=== PATIENT | male | born 1945 | race American Indian/Alaskan Native ===

== ENCOUNTER 2017-03-23 00:50 | Inpatient (IN) ==
[2017-03-23] MEDS ORDERED: Naloxone 0.4 MG/ML INJ IVP PRN (04:30)
--- NOTE | 2017-03-23 04:51 | Internal Med History&Physical ---
Date of Encounter: 03/23/17 Time of Encounter: 03:45 Assessment and Plan (1) CHF exacerbation Current visit: Yes Status: Acute No previous recent Echo available. Pt has increased SOB with leg swelling. Elevated BNP and CXR shows pulmonary congestion, consider CHF exacerbation. - Order Echo - Cont cardiac monitoring - Hold home med naproxen as seems it worsen pt's CHF symptoms - Strict I/O - Cardiac and fluid restriction diet - Lasix 40mg iv daily - in 2014, echo shows LVEF 60%, consider cardio consult if there is significant change in echo result. Qualifiers: Congestive heart failure type: unspecified Qualified Code(s): I50.9 - Heart failure, unspecified (2) COPD (chronic obstructive pulmonary disease) Current visit: Yes Status: Acute Stable, no wheezing, pt is not taking any inhaler/nebulizer at home. Qualifiers: COPD type: unspecified COPD Qualified Code(s): J44.9 - Chronic obstructive pulmonary disease, unspecified (3) Tobacco abuse Current visit: Yes Status: Acute Somking cessation education, nicotine patch. (4) AAA (abdominal aortic aneurysm) Current visit: Yes Status: Acute S/P surgery, cont outpatient follow up as scheduled. Qualifiers: Presence of rupture: without rupture Qualified Code(s): I71.4 - Abdominal aortic aneurysm, without rupture (5) PVD (peripheral vascular disease) Current visit: Yes Status: Acute S/P right leg stent (6) Low back pain Current visit: Yes Status: Chronic Cont home pain med for pain control Qualifiers: Chronicity: chronic Back pain laterality: bilateral Sciatica presence: with sciatica Sciatica laterality: bilateral sciatica Qualified Code(s): M54.42 - Lumbago with sciatica, left side; M54.41 - Lumbago with sciatica, right side; M54.41 - Lumbago with sciatica, right side; G89.29 - Other chronic pain; G89.29 - Other chronic pain (7) CAD (coronary artery disease) Current visit: Yes Status: Acute Pt has stent, cont Eliquis, BB, and statin. Pt has recent chest pain, probably benefit from stress test, can be done after CHF exacerbation has improved. Qualifiers: Coronary Disease-Associated Artery/Lesion type: [place] artery [place] vs. transplanted heart: [place] heart Associated angina: with unstable angina Qualified Code(s): I25.110 - Atherosclerotic heart disease of [place] coronary artery with unstable angina pectoris (8) Atrial fibrillation with RVR Current visit: No Status: Acute Now HR is well controlled after Cardizem drip. Drip stopped, cont home med metoprolol 75mg po tid for rate control. Cont Eliquis for AC. (9) Atypical chest pain Current visit: No Status: Acute Pt has intermittent chest pain. Hx of CAD. Need to r/o ACS. - Cont cardiac monitoring - Track 3 sets of troponin - Echo in AM. - Consider stress test after CHF exacerbation has improved. (10) DVT prophylaxis Current visit: Yes Status: Acute Pt is on Eliquis. Internal Medicine - H&P: HPI Chief complaint: SOB Admitted From: Home Plans for Post Hospital Care: Home History of present illness: Mr. Shay is a 71 year old male with Hx of A Fib on Eliquis, CAD s/p stent, PVD s/p stent, COPD, CHF, Tobacco abuse, Chronic low back pain, AAA s/p surgery , present to [facility] for SOB. Pt said he has increased SOB since he was started naproxen since 03/17/17. He cannot lay flat during night and has increased exertional SOB. He has increased leg swelling as well. In recent several days, he also has intermittent chest pain located on left side chest, sharp, around 8/ 10. Today his SOB is worse and he came to [place] ER. In ER, he was found A Fib RVR with HR 140-150 with SpO2 82-83% in RA. CXR shows pulmonary congestion. He was also found elevated BNP. He was placed on cardizem drip and given lasix iv. His symptoms has significantly improved. HR get down to 80s, SOB improved, and chest pain resolved. He was transferred to our hospital for further management. I have discussed CODE STATUS with pt. He clearly told me he doesn't want CPR or intubation even if necessary, he said "whatever way Lord takes me, just let me go". Past Med Surg Social Fam HX - Past Medical History Medical history: atrial fibrillation, COPD, coronary artery disease, hyperlipidemia, hypertension, myocardial infarction Psychiatric history: no psych history - Past Surgical History Surgical History: angioplasty/stent, orthopedic, other - Social History Smoking Status: Current every day smoker Packs per day: 0.5 Smokeless Tobacco Status: No Alcohol use: none Drug use: none - Family History Mother Hx Family Endocrine Disorder: Yes (Diabetes) Internal Medicine - H&P: Meds Cyclobenzaprine HCl 5 mg PO TID 11/18/14 [History] Hydrocodone/Acetaminophen [[place] 10-325 Tablet] 1 each PO Q4H PRN 11/18/14 [ History] Omeprazole [PriLOSEC] 20 mg PO BIDAC 11/18/14 [History] Simvastatin [Zocor] 80 mg PO HS 11/18/14 [History] Apixaban [Eliquis] 5 mg PO BID 03/22/17 [History] Metoprolol [Lopressor] 75 mg PO TID 03/22/17 [History] Naproxen [Naprosyn] 500 mg PO BID 03/22/17 [History] Multivit-Min/FA/Lycopen/Lutein [Centrum Silver Tablet] 1 each PO DAILY 03/23/17 [History] [place]-3 Fatty Acids [Fish Oil] 1,200 mg PO BID 03/23/17 [History] 3 Allergy/AdvReac Type Severity Reaction Status Date / Time No Known Allergies Allergy Unverified 12/24/14 11:34 All Systems PM: A 10-system review of systems was performed and is negative for pertinent findings except as documented above in the HPI. - Constitutional Vitals: Temp Pulse Resp BP Pulse Ox 97.4 F L 84 20 117/80 95 03/23/17 02:49 03/23/17 02:49 03/23/17 02:49 03/23/17 02:49 03/23/17 02:49 General appearance: Present: A&O X 3, no acute distress, answers questions appropriately - Head Head exam: Present: atraumatic, normocephalic - Eye Eye exam: Present: PERRL, conjuntiva pink, sclera anicteric Pupils: Present: PERRL - Neck Neck exam general surgery: Present: supple, trachea midline. Absent: lymphadenopathy - Respiratory Respiratory exam: Present: CTAB. Absent: accessory muscle use, rales, rhonchi, wheezes - Cardiovascular Cardiovascular exam: Present: RRR, +S1, +S2. Absent: diastolic murmur, gallop, rubs, systolic murmur - GI/Abdominal GI/Abdominal exam: Present: normal bowel sounds, soft, no peritoneal signs. Absent: distended, tenderness - Extremities Exam Extremities exam: Present: pedal edema (mild to moderated pedal edema b/l), warm , radial pulses palpable and symmetrical. Absent: calf tenderness, cyanotic - Neurological Exam Neurological exam: Present: CN II-XII intact, oriented X3, no focal deficits. Absent: pronater drift, facial droop, speech deficit - Skin Skin exam: Present: dry, intact Internal Med - H&P Results - EKG Data -: EKG Interpreted by Myself (Stephon Lugo RVNinfa)
[2017-03-23 05:30] LABS: Basophils % 0.3 %; Eosinophils % 0.2 %; Hematocrit 42.6 % (37.5-50.1); Hemoglobin 13.7 g/dL (12.9-16.9); Immature Granulocytes % 0.3 % (0-4); Lymphocytes # 1.7 K/mcL (0.6-4.6); Lymphocytes % 14.4 %; Mean Corpuscular HGB Conc 32.2 g/dL (31.6-35.5); Mean Corpuscular Hemoglobin 30.9 pg (28.0-33.3); Mean Corpuscular Volume 95.9 fL (83.0-100.0); Mean Platelet Volume 11.2 fL (9.4-12.4); Monocytes # 0.8 K/mcL (0.0-1.3); Monocytes % 6.5 %; Neutrophils # 9.2 K/mcL (1.6-8.9); Platelet Count 170 K/mcL (140-400); Red Blood Count 4.44 M/mcL (4.19-5.50); Red Cell Distribution Width 14.5 % (11.5-14.5); Segmented Neutrophils % 78.3 %
[2017-03-23 05:53] LABS: BUN/Creatinine Ratio 21 (6-26); Blood Urea Nitrogen 15 mg/dL (8-23); Calcium 9.2 mg/dL (8.6-10.3); Carbon Dioxide 30 mEq/L (23-29); Chloride 103 mEq/L (98-107); Glucose 125 mg/dL (70-105); Magnesium 1.8 mg/dL (1.6-2.6); Osmolality,Calculated 290 (280-300); Potassium 4.3 mEq/L (3.5-5.1); Sodium 139 mEq/L (136-145); eGFR For African Americans > 60 (> 60); eGFR For Non-African Americans > 60 (> 60)
[2017-03-23] MEDS: *HR* HYDROcodone/Acet 10/325 mg TABLET PO PRN ×2 (06:16→20:48)
[2017-03-23] MEDS: Furosemide 40 MG/4 ML VIAL IVP SCH (08:35)
[2017-03-23] MEDS: Apixaban 5 MG TABLET PO SCH ×2 (08:35→20:48)
[2017-03-23] MEDS: Nicotine 21 MG PATCH.TD24 TD SCH (08:36)
[2017-03-23] MEDS: Multivit/Ca/Min/Fe/FA 1 TAB TABLET PO SCH (08:36)
[2017-03-23] MEDS ORDERED: (Omega-3 Fatty Acids [Fish Oil] 1,200 MG) PO SCH (09:00)
--- NOTE | 2017-03-23 10:28 | Internal Med Progress Note ---
<Juan Luis Ferro - Last Filed: 03/23/17 16:26> Date of Encounter: 03/23/17 Time of Encounter: 10:27 - Assessment and plan (1) Atrial fibrillation with RVR Current Visit: Yes Status: Acute Assessment and plan: - Patient with a known history of atrial fibrillation presents with RVR - Heart rate has been running in 90s after stopping Cardizem drip overnight - Patient started on home beta kristine - Cardiology has been consulted for A. fib RVR with new onset heart failure, appreciate recommendations - Patient's is anticoagulated at home with Eliquis, will continue - Likely brought on by shortness of breath secondary to CHF exacerbation Plan - Continue home Eliquis and metoprolol 75 mg 3 times a day - We will treat CHF as below (2) CHF exacerbation Current Visit: Yes Status: Acute Assessment and plan: - Patient denies any previous history of congestive heart failure, [facility] - Echocardiogram performed assessment reveals an ejection fraction of 5055%, indeterminant diastolic dysfunction, no valvular dysfunction - Cardiology following, appreciate recommendations - BNP on admission of 717 - Chest x-ray on 03/22/17 showing mild pulmonary edema and small bilateral pleural effusions - Less likely etiology of COPD as patient is not complaining of cough, wheezing , respiratory panel negative for infection. Plan - He was started on Lasix 40 mg IV daily. We will continue as patient is clinically improved - Strict I's and O's - Pending cardiology recommendations Qualifiers: Congestive heart failure type: diastolic Qualified Code(s): I50.33 - Acute on chronic diastolic (congestive) heart failure (3) COPD (chronic obstructive pulmonary disease) Current Visit: Yes Status: Chronic Assessment and plan: - Patient states history of COPD - Not appear to be in exacerbation at this time - Continue supplemental oxygen as needed, no reported home O2 requirement - Albuterol when necessary shortness of breath Qualifiers: COPD type: unspecified COPD Qualified Code(s): J44.9 - Chronic obstructive pulmonary disease, unspecified (4) Tobacco abuse Current Visit: Yes Status: Acute Assessment and plan: - Patient admits to smoking one pack of cigarettes per day, for the past 50+ years - We did have a discussion today regarding smoking cessation - He states that he is aware of risks of continued use however he is not ready to quit at this time. (5) AAA (abdominal aortic aneurysm) Current Visit: Yes Status: Acute Assessment and plan: - Status post surgery, continue management as outpatient Qualifiers: Presence of rupture: without rupture Qualified Code(s): I71.4 - Abdominal aortic aneurysm, without rupture (6) Low back pain Current Visit: Yes Status: Chronic Assessment and plan: Chronic low back pain Continue home medications of Flexeril, [place] 10-325 Qualifiers: Chronicity: chronic Back pain laterality: bilateral Sciatica presence: with sciatica Sciatica laterality: bilateral sciatica Qualified Code(s): M54.42 - Lumbago with sciatica, left side; M54.41 - Lumbago with sciatica, right side; M54.41 - Lumbago with sciatica, right side; G89.29 - Other chronic pain; G89.29 - Other chronic pain (7) CAD (coronary artery disease) Current Visit: Yes Status: Acute Assessment and plan: - Complaining of chest pressure in emergency department, resolved - History of CAD with 3 stents in 2003 - Troponin negative 3 - EKG unchanged - Cardiology following, appreciate recommendations - Continue aspirin, beta kristine Qualifiers: Coronary Disease-Associated Artery/Lesion type: [place] artery [place] vs. transplanted heart: [place] heart Associated angina: without angina Qualified Code(s): I25.10 - Atherosclerotic heart disease of [place] coronary artery without angina pectoris (8) DVT prophylaxis Current Visit: Yes Status: Acute Assessment and plan: Patient is on Eliquis for known atrial fibrillation - Time Spent With Patient 25 - 35 minutes - Subjective Interval history: This note is not for billing purposes. Patient was seen and examined this morning bedside. He states that he presented to the emergency department due to complaints of shortness of breath as well as chest pressure. The pressure is intermittent and located substernally. He does have a past cardiac history of CAD status post 3 stents. His symptoms were nonexertional and have resolved. He reports no previous history of congestive heart failure. He did have a stress test approximately 1 year ago at the [facility] which he states was normal. Does admit to a chronic cough however no changes in sputum production or amount. Denies any symptoms of fevers, chills. - Constitutional Vitals: Temp Pulse Resp BP Pulse Ox 97.8 F 95 16 121/59 90 03/23/17 06:59 03/23/17 06:59 03/23/17 06:59 02/07/18 06:59 03/23/17 06:59 General appearance: Present: A&O X 3, no acute distress, answers questions appropriately Exam: Gen.: Vitals noted. No acute distress. AAOx3 HEENT: PERRL/EOMI, oropharynx clear, Normocephalic, atraumatic Cardiac: Irregular, mildly tachycardic, no murmur, +S1/S2 Pulmonary: CTA bilaterally, no wheezes, rales or rhonchi, equal chest expansion. Abdomen: soft, nontender, BS noted, no guarding MSK: ROM intact, no joint swelling noted Extremities: 2+ bilateral lower extremity edema, nontender calf, no cyanosis or clubbing Neuro: A&Ox3, moves all extremities, no focal deficits Psych: Appropriate mood and behavior Internal Medicine: Result - Labs CBC & Chem 7: 03/23/17 04:54 03/23/17 04:54 Labs: Short CBC 03/23/17 Range/Units 04:54 WBC 11.7 H (4.3-11.1) K/mcL Hgb 13.7 (12.9-16.9) g/dL Hct 42.6 (37.5-50.1) % Plt Count 170 (140-400) K/mcL Neutrophils # 9.2 H (1.6-8.9) K/mcL BMP 03/23/17 04:54 Sodium 139 Potassium 4.3 Chloride 103 Carbon Dioxide 30 H BUN 15 Creatinine 0.72 Glucose 125 H Calcium 9.2 Cardiac Enzymes 03/23/17 Range/Units 04:54 Troponin I < 0.03 (< 0.04) ng/mL Consult Discharge Plan - Plan [facility]errals: [facility] [Primary Care Provider[facility] - <Marcell Okeefe - Last Filed: 03/23/17 17:54> Date of Encounter: 03/23/17 - Assessment and plan (1) CHF exacerbation Current Visit: Yes Status: Acute Qualifiers: Congestive heart failure type: diastolic Qualified Code(s): I50.33 - Acute on chronic diastolic (congestive) heart failure (2) Atrial fibrillation Current Visit: Yes Status: Chronic Qualifiers: Atrial fibrillation type: chronic Qualified Code(s): I48.2 - Chronic atrial fibrillation (3) CAD (coronary artery disease) Current Visit: Yes Status: Acute Qualifiers: Coronary Disease-Associated Artery/Lesion type: [place] artery [place] vs. transplanted heart: [place] heart Associated angina: without angina Qualified Code(s): I25.10 - Atherosclerotic heart disease of [place] coronary artery without angina pectoris (4) PVD (peripheral vascular disease) Current Visit: Yes Status: Chronic (5) Tobacco abuse Current Visit: Yes Status: Acute - Constitutional Vitals: Temp Pulse Resp BP Pulse Ox 96.6 F L 92 16 118/82 97 03/23/17 15:27 03/23/17 15:27 03/23/17 15:27 03/23/17 15:27 03/23/17 15:27 Internal Medicine: Result - Labs CBC & Chem 7: 03/23/17 04:54 03/23/17 04:54 Labs: Short CBC 03/23/17 Range/Units 04:54 WBC 11.7 H (4.3-11.1) K/mcL Hgb 13.7 (12.9-16.9) g/dL Hct 42.6 (37.5-50.1) % Plt Count 170 (140-400) K/mcL Neutrophils # 9.2 H (1.6-8.9) K/mcL BMP 03/23/17 04:54 Sodium 139 Potassium 4.3 Chloride 103 Carbon Dioxide 30 H BUN 15 Creatinine 0.72 Glucose 125 H Calcium 9.2 Cardiac Enzymes 03/23/17 03/23/17 Range/Units 04:54 10:34 Troponin I < 0.03 < 0.03 (< 0.04) ng/mL - Impressions Impressions Echocardiogram 03/23/17 04:49 Impressions: LVEF 50-55%. Normal LV chamber size, wall thickness and function. Indeterminate diastolic function. Normal right ventricular structure and function. No evidence of pulmonary hypertension. No significant valvular dysfunction. Left Ventricular Wall Motion: Rest Echo Findings All wall segments showed normal motion. Findings: Study Quality * Technically adequate exam. ECG Findings * Atrial fibrillation. Left Ventricle * LVEF 50-55%. * Normal LV chamber size, wall thickness and function. * Indeterminate diastolic function. Right Ventricle * Normal right ventricular structure and function. Left Atrium * Severely dilated left atrium. Right Atrium * Mildly dilated right atrium. Interatrial Septum * Interatrial septum not well evaluated. Aortic Valve * Trileaflet aortic valve with normal function. * No aortic regurgitation. * No aortic stenosis. Mitral Valve * Normal mitral valve structure and function. * No mitral stenosis. * Trace mitral regurgitation. Tricuspid Valve * Normal tricuspid valve structure and function. * Trace tricuspid regurgitation. * No evidence of pulmonary hypertension. Pulmonic Valve * Pulmonic valve is not well visualized. * No pulmonic regurgitation. Aorta * Normally sized aortic root. Pericardium * The pericardium appears normal. IVC * Normal IVC dimensions and inspiratory collapse. Pulmonary Artery * Normal visualized portions of the main pulmonary artery. - Attending Attestation I examined this patient and my medical decision-making was reviewed with the Resident Physician on 03/23/17. I agree with the documented findings, disposition and treatment plan as described except to the extent set forth below. Mr Shay was admitted earlier today for acute diastolic heart failure and rapid a fib. Mr Shay is still having chest and nasal congestion. No fever. Coughing some. Exam Alert. Comfortable Heart tachy and irreg Rhonchi heard I/P 1. Acute diastolic CHF 2. A fib
--- NOTE | 2017-03-23 12:38 | Cardiology Consult Note ---
Date of Encounter: 03/23/17 Time of Encounter: 12:29 Assessment and Plan (1) CHF exacerbation Current Visit: Yes Status: Acute Acute diastolic CHF. Fluid overload on exam. TTE shows EF 50-55%. Indeterminate diastolic function. No significant valvular disease. CHF education reviewed. Low sodium diet and daily weights. Agree with IV lasix as you are doing. Qualifiers: Congestive heart failure type: diastolic Qualified Code(s): I50.33 - Acute on chronic diastolic (congestive) heart failure (2) Atrial fibrillation with RVR Current Visit: No Status: Acute Atrial fibrillation with RVR on presentation. Reports history of afib. Currently on eliquis for AC. Likely respiratory driven. Continue lopressor. HR currently 90's. If recurrent afib with RVR add cardizem. (3) CAD (coronary artery disease) Current Visit: Yes Status: Acute H/o previous PCI in 2003. Reports stress test one year ago at the [facility] that was normal. Continue asa, statin, and bb. Qualifiers: Coronary Disease-Associated Artery/Lesion type: [place] artery [place] vs. transplanted heart: [place] heart Associated angina: with unstable angina Qualified Code(s): I25.110 - Atherosclerotic heart disease of [place] coronary artery with unstable angina pectoris Discussion w patient/family: The assessment and plan as outlined above was discussed with the patient and/or family members who expressed understanding and agreement. All questions were answered. Thank you for involving us in the care of your patient. Please call with any questions. History of Present Illness Consult date: 03/23/17 Requesting physician: Juan Luis Ferro Consult reason: CHF Chief complaint: SOB for 3 days History of present illness: Mr. Shay is a 71 year old male with a past medical history of CAD s/p previous PCI in 2003, COPD, atrial fibrillation on eliquis, HTN, and tobacco use. [facility] presented to [facility] with increasing SOB and chills for 3 days. Cardiology consulted for CHF and atrial fibrillation with RVR. Cardiac work-up included troponin that was negative x3. EKG showed atrial fibrillation with RVR. TTE shows preserved EF. HR noted to be elevated in the 120's. He was initially on cardizem gtt that is now off. HR now 90-110. He denies chest pain. C/o occasional tingling in his left arm . Past Med Surg Social Fam HX - Past Medical History Attestation: Yes The following information was validated with the patient. Medical history: atrial fibrillation, COPD, coronary artery disease, hyperlipidemia, hypertension, myocardial infarction Psychiatric history: no psych history - Past Surgical History Surgical History: angioplasty/stent, orthopedic, other - Social History Smoking Status: Current every day smoker Packs per day: 0.5 Smokeless Tobacco Status: No Alcohol use: none Drug use: none - Family History Mother Hx Family Endocrine Disorder: Yes (Diabetes) Medications and Allergies Cyclobenzaprine HCl 5 mg PO TID 11/18/14 [History] Hydrocodone/Acetaminophen [[place] 10-325 Tablet] 1 each PO Q4H PRN 11/18/14 [ History] Omeprazole [PriLOSEC] 20 mg PO BIDAC 11/18/14 [History] Simvastatin [Zocor] 80 mg PO HS 11/18/14 [History] Apixaban [Eliquis] 5 mg PO BID 03/22/17 [History] Metoprolol [Lopressor] 75 mg PO TID 03/22/17 [History] Naproxen [Naprosyn] 500 mg PO BID 03/22/17 [History] Multivit-Min/FA/Lycopen/Lutein [[place] Silver Tablet] 1 each PO DAILY 03/23/17 [History] [place]-3 Fatty Acids [Fish Oil] 1,200 mg PO BID 03/23/17 [History] 3 Allergy/AdvReac Type Severity Reaction Status Date / Time No Known Allergies Allergy Unverified 12/24/14 11:34 All Systems Review: A 10-system review of systems was performed and is negative for pertinent findings except as documented above in the HPI. Physical Examination Vital Signs, Last 4 Hours Temp Pulse Resp BP Pulse Ox 03/23/17 11:49 98 F 90 16 115/61 91 General: Conversant, No Apparent Distress HEENT: Atraumatic, Normocephaly, Mucus Membranes Moist Neck: No JVD, Normal carotid pulses Cardiac: Reg Rate and Rhythm, Normal S1 and S2, No Murmur Lungs: Other (Rales BLL posteriorly. ) Neuro: Alert and responsive, No focal deficits noted Abdomen: Soft, Non-Tender Skin: No rashes noted on visualized skin Musculoskeletal: No Chest Wall Tenderness Extremities: No Clubbing, No Cyanosis, Normal Pulses, Other (2+ BLE edema up to knees. ) Results 03/23/17 04:54 03/23/17 04:54 Lab Results 03/23/17 03/23/17 03/23/17 04:54 04:54 04:54 WBC 11.7 H Hgb 13.7 Hct 42.6 Plt Count 170 Sodium 139 Potassium 4.3 Chloride 103 Carbon Dioxide 30 H BUN 15 Creatinine 0.72 Glucose 125 H Calcium 9.2 Magnesium 1.8 Troponin I < 0.03 03/23/17 10:34 WBC Hgb Hct Plt Count Sodium Potassium Chloride Carbon Dioxide BUN Creatinine Glucose Calcium Magnesium Troponin I < 0.03 - Imaging and Cardiology Echo: report reviewed Consult Discharge Plan - Plan [facility]errals: [facility] [Primary Care Provider] -
[2017-03-23] MEDS: Aspirin Enteric Coated 81 MG Tablet PO SCH (15:13)
[2017-03-23 16:26] LABS: Adenovirus Not Detected (Not Detect); Bordetella Pertussis Not Detected (Not Detect); Chlamydophila pneumoniae Not Detected (Not Detect); Coronavirus 229E Not Detected (Not Detect); Coronavirus HKU1 Not Detected (Not Detect); Coronavirus NL63 Not Detected (Not Detect); Coronavirus OC43 Not Detected (Not Detect); Human Metapneumovirus Not Detected (Not Detect); Human Rhinovirus/Enterovirus Not Detected (Not Detect); Influenza A Subtype 2009 H1 Not Detected (Not Detect); Influenza A Untypeable Not Detected (Not Detect); Influenza B Not Detected (Not Detect); Mycoplasma pneumoniae Not Detected (Not Detect); Parainfluenza Virus 1 Not Detected (Not Detect); Parainfluenza Virus 2 Not Detected (Not Detect); Parainfluenza Virus 3 Not Detected (Not Detect); Parainfluenza Virus 4 Not Detected (Not Detect); Respiratory Syncytial Virus Not Detected (Not Detect)
[2017-03-24] MEDS: *HR* HYDROcodone/Acet 10/325 mg TABLET PO PRN ×4 (05:47→13:06)
[2017-03-24 06:30] LABS: Hematocrit 43.6 % (37.5-50.1); Hemoglobin 14.3 g/dL (12.9-16.9); Mean Corpuscular HGB Conc 32.8 g/dL (31.6-35.5); Mean Corpuscular Hemoglobin 31.4 pg (28.0-33.3); Mean Corpuscular Volume 95.6 fL (83.0-100.0); Mean Platelet Volume 10.7 fL (9.4-12.4); Platelet Count 174 K/mcL (140-400); Red Blood Count 4.56 M/mcL (4.19-5.50); Red Cell Distribution Width 14.3 % (11.5-14.5)
[2017-03-24 07:07] LABS: BUN/Creatinine Ratio 19 (6-26); Blood Urea Nitrogen 16 mg/dL (8-23); Calcium 9.5 mg/dL (8.6-10.3); Carbon Dioxide 30 mEq/L (23-29); Chloride 104 mEq/L (98-107); Glucose 111 mg/dL (70-105); Osmolality,Calculated 290 (280-300); Potassium 4.2 mEq/L (3.5-5.1); Sodium 139 mEq/L (136-145); eGFR For African Americans > 60 (> 60); eGFR For Non-African Americans > 60 (> 60)
[2017-03-24] MEDS: Multivit/Ca/Min/Fe/FA 1 TAB TABLET PO SCH (09:30)
[2017-03-24] MEDS: Aspirin Enteric Coated 81 MG Tablet PO SCH (09:30)
[2017-03-24] MEDS: Apixaban 5 MG TABLET PO SCH (09:30)
[2017-03-24] MEDS: Furosemide 40 MG/4 ML VIAL IVP SCH (09:32)
--- NOTE | 2017-03-24 09:34 | Discharge Summary ---
<RoxanneJuan Luis carver - Last Filed: 03/24/17 14:00> Date of Encounter: 03/24/17 Time of Encounter: 09:31 - Discharge Diagnosis (1) Atrial fibrillation with RVR Priority: Primary Status: Acute (2) CHF exacerbation Priority: Secondary Status: Acute Qualifiers: Congestive heart failure type: diastolic Qualified Code(s): I50.33 - Acute on chronic diastolic (congestive) heart failure (3) COPD (chronic obstructive pulmonary disease) Priority: Secondary Status: Chronic Qualifiers: COPD type: unspecified COPD Qualified Code(s): J44.9 - Chronic obstructive pulmonary disease, unspecified (4) Tobacco abuse Priority: Secondary Status: Acute (5) AAA (abdominal aortic aneurysm) Priority: Secondary Status: Acute Qualifiers: Presence of rupture: without rupture Qualified Code(s): I71.4 - Abdominal aortic aneurysm, without rupture (6) Low back pain Priority: Secondary Status: Chronic Qualifiers: Chronicity: chronic Back pain laterality: bilateral Sciatica presence: with sciatica Sciatica laterality: bilateral sciatica Qualified Code(s): M54.42 - Lumbago with sciatica, left side; M54.41 - Lumbago with sciatica, right side; M54.41 - Lumbago with sciatica, right side; G89.29 - Other chronic pain; G89.29 - Other chronic pain (7) CAD (coronary artery disease) Priority: Secondary Status: Acute Qualifiers: Coronary Disease-Associated Artery/Lesion type: three affiliated artery [place] vs. transplanted heart: three affiliated heart Associated angina: without angina Qualified Code(s): I25.10 - Atherosclerotic heart disease of three affiliated coronary artery without angina pectoris (8) DVT prophylaxis Priority: Secondary Status: Acute - Discharge Medications Prescriptions: Aspirin Enteric Coated [Aspirin EC] 81 mg PO DAILY #30 tab Home Medications: Cyclobenzaprine HCl 5 mg PO TID 11/18/14 [History] Hydrocodone/Acetaminophen [[place] 10-325 Tablet] 1 each PO Q4H PRN 11/18/14 [ History] Omeprazole [PriLOSEC] 20 mg PO BIDAC 11/18/14 [History] Simvastatin [Zocor] 80 mg PO HS 11/18/14 [History] Apixaban [Eliquis] 5 mg PO BID 03/22/17 [History] Metoprolol [Lopressor] 75 mg PO TID 03/22/17 [History] Naproxen [Naprosyn] 500 mg PO BID 03/22/17 [History] Multivit-Min/FA/Lycopen/Lutein [Centrum Silver Tablet] 1 each PO DAILY 03/23/17 [History] [place]-3 Fatty Acids [Fish Oil] 1,200 mg PO BID 03/23/17 [History] Aspirin Enteric Coated [Aspirin EC] 81 mg PO DAILY #30 tab 03/24/17 [Rx] Allergies/Adverse Reactions: 3 Allergy/AdvReac Type Severity Reaction Status Date / Time No Known Allergies Allergy Unverified 12/24/14 11:34 Procedures/tests Complete & Pending: Procedures Performed prior 72 hours Category Date Time Status EV echocardiogram Routine Y 03/23/17 04:49 Completed Date of admission: 03/23/17 04:30 Primary care physician: PCP [place] Consults: 03/23/17 04:40 Consult to Field Project Manager [CONS] Routine Reason for SW Consult: Pt is admitted but has one appointment for his disability evaluation this PM, please see him and see if we can help or not. 03/23/17 11:19 Consult to Cardiology [CONS] Routine Comment: Consulting Provider: Cardiology Chasity Reason for Consult: new onset HFrEF, Afib RVR Call Completed: Yes Discharging clinician: Juan Luis Ferro Anticipated date of discharge: 03/24/17 - Patient Status Disposition: Home, Self-Care Condition: Good Functional capacity at discharge: independent ambulation Overall status at discharge: patient is back to baseline - Discharge Instructions Instructions: Aspirin (By mouth), Heart Failure (DC), Atrial Fibrillation (DC) , Peripheral Vascular Disorders (DC), Chronic Obstructive Pulmonary Disease (DC) , Cigarette Smoking and Your Health, Team Lead (GEN) Follow Up With: OR,PCP [Primary Care Provider] - 03/28/17 2:45 pm (follow up with primary care at OR) Additional Instructions: Please follow up with her primary care physician within one week of discharge. Cardiology is artifact scheduled a follow-up appointment. Please take all medications as prescribed - Diet and Activity Activity: increase activity as tolerated, resume usual activities as tolerated Diet: advance to your usual diet Hospital course: Mr. Shay is a 71 year old male with past medical history of atrial fibrillation on anticoagulation, CAD status post stenting in 2003, PVD status post stent, COPD, CHF, tobacco abuse, AAA status post surgery presented to [facility] emergency room with a chief complaint of shortness of breath. He did admit to associated symptoms of orthopnea and intermittent chest pressure located on the left with radiation to his arm. In the emergency room he was found to have atrophic lung with RVR with a heart rate 140-150 with oxygen saturation of 80-83 % on room air. CXR showed pulmonary congestion and a elevated BNP of 717. He was started on a Cardizem drip and given IV Lasix. He is admitted to hospital for further evaluation and management of suspected CHF exacerbation and A. fib RVR. During course of stay, patient gradually improved. He was diuresed and he was transitioned back to his home rate control medications. Troponin was trended and negative 3. Cardiology was consulted and they elected to medically manage his A. fib RVR and did not feel that he was appropriate for further testing of chest pain or CHF. A cardiogram performed which revealed an ejection fraction of 50-55% and intermediate diastolic dysfunction. On day of discharge, patient is medically stable with 0 complaints. He is tolerating room air and heart rate has been stable in 70s to 80s. He was instructed to follow up with his primary care physician and continue his anticoagulation as well as all of his other home medications. He will be discharged home in stable medical condition. - Time Spent with Patient Total time spent providing and/or coordinating discharge services: - Constitutional Vitals: Temp Pulse Resp BP Pulse Ox 98.0 F 86 14 107/69 97 03/24/17 06:56 03/24/17 06:56 03/24/17 06:56 03/24/17 06:56 03/24/17 06:56 General appearance: Present: A&O X 3, no acute distress, answers questions appropriately Exam: Gen.: Vitals noted. No acute distress. AAOx3 HEENT: PERRL/EOMI, oropharynx clear, Normocephalic, atraumatic Cardiac: RRR, no murmur, +S1/S2 Pulmonary: Mild expiratory wheezing, equal chest expansion Abdomen: soft, nontender, BS noted, no guarding MSK: ROM intact, no joint swelling noted Extremities: no BLE edema, nontender calf, no cyanosis or clubbing Neuro: A&Ox3, moves all extremities, no focal deficits Psych: Appropriate mood and behavior <Marcell Okeefe Stephon - Last Filed: 03/24/17 18:32> Date of Encounter: 03/24/17 - Discharge Diagnosis (1) CHF exacerbation Priority: Primary Status: Acute Qualifiers: Congestive heart failure type: diastolic Qualified Code(s): I50.33 - Acute on chronic diastolic (congestive) heart failure (2) Atrial fibrillation Priority: Secondary Status: Chronic Qualifiers: Atrial fibrillation type: chronic Qualified Code(s): I48.2 - Chronic atrial fibrillation (3) CAD (coronary artery disease) Status: Acute Qualifiers: Coronary Disease-Associated Artery/Lesion type: three affiliated artery [place] vs. transplanted heart: three affiliated heart Associated angina: without angina Qualified Code(s): I25.10 - Atherosclerotic heart disease of three affiliated coronary artery without angina pectoris (4) PVD (peripheral vascular disease) Priority: Secondary Status: Chronic (5) Tobacco abuse Status: Acute Procedures/tests Complete & Pending: Procedures Performed prior 72 hours Category Date Time Status EV echocardiogram Routine Y 03/23/17 04:49 Completed Date of admission: 03/23/17 04:30 [facility] care physician: [facility] Consults: 03/23/17 04:40 Consult to Field Project Manager [CONS] Routine Reason for SW Consult: Pt is admitted but has one appointment for his disability evaluation this PM, please see him and see if we can help or not. 03/23/17 11:19 Consult to Cardiology [CONS] Routine Comment: Consulting Provider: Cardiology Chasity Reason for Consult: new onset HFrEF, Afib RVR Call Completed: Yes Hospital course: Mr. Shay is a 71 year old male - Time Spent with Patient Total time spent providing and/or coordinating discharge services: 39min - Constitutional Vitals: Temp Pulse Resp BP Pulse Ox 97.7 F 96 14 113/77 92 03/24/17 11:07 03/24/17 11:07 03/24/17 11:07 03/24/17 11:07 03/24/17 11:07 - Attending Attestation I examined this patient and my medical decision-making was reviewed with the Resident Physician on 03/24/17. I agree with the documented findings, disposition and treatment plan as described except to the extent set forth below. Mr Shay has been admitted for CHF and hypoxia. He is breathing better and is afebrile. He is ready for discharge home and outpatient follow up. Exam alert Comfortable Mucus membranes dry Heart reg No wheeze abd soft Plan D/C home today
[2017-03-24] MEDS: Nicotine 21 MG PATCH.TD24 TD SCH (09:36)
--- NOTE | 2017-03-24 09:50 | Cardiology Progress Note ---
Date of Encounter: 03/24/17 Time of Encounter: 09:47 Assessment and Plan (1) CHF exacerbation Current Visit: Yes Status: Acute Acute diastolic CHF. Fluid overload on exam. TTE shows EF 50-55%. Indeterminate diastolic function. No significant valvular disease. CHF education reviewed. Low sodium diet and daily weights. Symptoms improved. Recommend oral lasix at discharge. Cardiology will sign off. Out-pt f/u will be coordinated by [facility]. Call with questions. Qualifiers: Congestive heart failure type: diastolic Qualified Code(s): I50.33 - Acute on chronic diastolic (congestive) heart failure (2) Atrial fibrillation with RVR Current Visit: Yes Status: Acute Atrial fibrillation with RVR on presentation. Reports history of chronic afib s/ p unsuccesful ablation in the past. Currently on eliquis for AC. Likely respiratory driven. Continue lopressor. HR currently 90's. Avg 100 bpm over last 24 hours. (3) CAD (coronary artery disease) Current Visit: Yes Status: Acute H/o previous PCI to RCA x 3 stents in 2003. Reports stress test one year ago at the [place] that was normal. Continue asa, statin, and bb. Qualifiers: Coronary Disease-Associated Artery/Lesion type: redding artery [place] vs. transplanted heart: redding heart Associated angina: without angina Qualified Code(s): I25.10 - Atherosclerotic heart disease of redding coronary artery without angina pectoris Discussion w patient/family: The assessment and plan as outlined above was discussed with the patient and/or family members who expressed understanding and agreement. All questions were answered. Thank you for involving us in the care of your patient. Please call with any questions. Subjective Principal diagnosis: DCHF, chronic afib Interval history: Mr. Bateman reports he is feeling better. Dyspnea and BLE edema has improved. Objective Vital Signs, Last 4 Hours Temp Pulse Resp BP Pulse Ox 03/24/17 06:56 98.0 F 86 14 107/69 97 General: Conversant, No Apparent Distress HEENT: Atraumatic, Normocephaly, Mucus Membranes Moist Neck: No JVD, Normal carotid pulses Cardiac: Reg Rate and Rhythm, Normal S1 and S2, No Murmur Lungs: Normal Breath Sounds, No Wheeze, Rales, Rhonchi Neuro: Alert and responsive, No focal deficits noted Abdomen: Soft, Non-Tender Skin: No rashes noted on visualized skin Musculoskeletal: No Chest Wall Tenderness Extremities: No Clubbing, No Cyanosis, Normal Pulses, Other (trace BLE edema) Results 03/24/17 06:03 03/24/17 06:03 Lab Results 03/23/17 03/24/17 03/24/17 10:34 06:03 06:03 WBC 11.6 H Hgb 14.3 Hct 43.6 Plt Count 174 Sodium 139 Potassium 4.2 Chloride 104 Carbon Dioxide 30 H BUN 16 Creatinine 0.85 Glucose 111 H Calcium 9.5 Troponin I < 0.03 - Imaging and Cardiology Echo: report reviewed - EKG Interpretation EKG results cardiology: personally reviewed Consult Discharge Plan - Plan Additional Instructions: Please follow up with her primary care physician within one week of discharge. Cardiology is artifact scheduled a follow-up appointment. Please take all medications as prescribed [facility]errals: [facility]Primary Care Provider[facility] - Prescriptions: Aspirin Enteric Coated [Aspirin EC] 81 mg PO DAILY #30 tab
[2017-03-24 11:10] VITALS: BP 113/77
== END 2017-03-24 15:16 | disposition home or self-care (01) | DRG 293 ==
LOC: 2NENU
PROVIDERS: ADMIT Internal Medicine; ATTEND Internal Medicine

== ENCOUNTER 2017-11-27 | Inpatient (IN) ==
[2017-11-27] MEDS ORDERED: *HR* Morphine 2 MG/ML SYRINGE IVP ONE (01:52)
[2017-11-27] MEDS ORDERED: Nitroglycerin 0.4 MG TAB.SUBL SL PRN (01:56)
[2017-11-27] MEDS ORDERED: Isovue-370 500 ML INFUS..BTL IV ONE (02:00)
--- NOTE | 2017-11-27 02:17 | Internal Med History&Physical ---
Addendum entered and electronically signed by Edd Yang DO 11/27/17 03: 17: Patient has Evidence of acute pancreatitis on CT abdomen. This is consistent with his symptoms of nausea, epigastric/right upper quadrant pain. I will add a Lipase, amylase and Lactic acid to labs. We will bolus 500mL LR now, and start 125mL/hr LR. Conservative fluid rate must be maintained due to history of CHF with fluid overload in the past. Diagnosis and plan are explained to patient who agrees. Original Note: <Edd Yang - Last Filed: 11/27/17 03:11> Date of Encounter: 11/27/17 Time of Encounter: 01:45 Internal Medicine - H&P: HPI Chief complaint: Chest pain Admitted From: Hospital to Hospital Transfer Plans for Post Hospital Care: Home History of present illness: Mr. Shay is a 72 year old male with history of atrial fibrillation, COPD, CAD status post 3 stents in 2003, hyperlipidemia, hypertension and AAA repair in 2007 who presented to [place] ED with complaint of insidious onset chest pain. The patient states that he was outside raking leaves and started to develop chest pain earlier this evening at approximately 5 PM. The pain started in the epigastric region and has radiation both to his abdomen and into his chest. The pain started mild, however has progressed to 7/10 as the night has gone on. The patient does endorse that the pain is exacerbated by movement and exertion , however nothing apart from rest seems to really alleviate the pain. The patient was given nitroglycerin in the ED however he states that this was not helpful to the pain. He states that there is some shortness of breath associated with this, however he does have baseline shortness of breath and says that it does not significantly worsen this. He also has some nausea but associated with this however has had no vomiting. He otherwise reports no acute symptoms. The patient denies any orthopnea or PND recently. He also denies any racing heartbeat, diaphoresis or palpitations. Significantly, the patient does admit to recent history of Lyme disease for which he is currently being treated with doxycycline. The patient was initially seen at [facility] where he was being worked up for Chest pain. He received an EKG which demonstrated atrial fibrillation with RVR, without evidence of ischemic changes. Initial troponin was negative. He did have a CXR which shows evidence of possible interstitial lung disease which appears to be chronic, however does not appear suspicious for consolidation. Past Med Surg Social Fam HX - Past Medical History Medical history: atrial fibrillation, COPD, coronary artery disease, hyperlipidemia, hypertension, myocardial infarction Additional medical history: 3 cardiac stents Psychiatric history: no psych history - Past Surgical History Surgical History: angioplasty/stent, orthopedic, other Additional surgical history: bilateral shoulder sx. carpel tunnel sx. right wrist sx. back sx - Social History Smoking Status: Current every day smoker Smokeless Tobacco Status: No Alcohol use: none Drug use: none - Family History Mother Hx Family Endocrine Disorder: Yes (Diabetes) Internal Medicine - H&P: Meds Cyclobenzaprine HCl 5 mg PO TID 11/18/14 [History] Hydrocodone/Acetaminophen [[place] 10-325 Tablet] 1 each PO Q4H PRN 11/18/14 [ History] Omeprazole [PriLOSEC] 20 mg PO BIDAC 11/18/14 [History] Simvastatin [Zocor] 80 mg PO HS 11/18/14 [History] Apixaban [Eliquis] 5 mg PO BID 03/22/17 [History] Metoprolol [Lopressor] 75 mg PO TID 03/22/17 [History] Multivit-Min/FA/Lycopen/Lutein [Centrum Silver Tablet] 1 each PO DAILY 03/23/17 [History] Ilfeld-3 Fatty Acids [Fish Oil] 1,200 mg PO BID 03/23/17 [History] Aspirin Enteric Coated [Aspirin EC] 81 mg PO DAILY #30 tab 03/24/17 [Rx] Furosemide [Lasix] 40 mg PO DAILY 11/27/17 [History] 3 Allergy/AdvReac Type Severity Reaction Status Date / Time gabapentin Allergy See Verified 11/27/17 00:26 Comments Oxycodone Allergy See Verified 11/27/17 00:26 Comments All Systems PM: A 10-system review of systems was performed and is negative for pertinent findings except as documented above in the HPI. Review of systems: Constitutional: Denies fevers, chills, weight loss, generalized fatigue Head/Neck: Denies JAMESON, neck stiffness EENT: Denies vision changes/blurriness, rhinorrhea, congestion, sore throat CVS: Admits to epigastric pain with radiation to chest and lower abdomen, shortness of breath and dyspnea on exertion. Denies orthopnea, PND, diaphoresis Pulm: Denies cough, sputum, hemoptysis, wheezing GI: Admits to abdominal pain with radiation to chest and lower abdomen, nausea. Denies vomiting, diarrhea, constipation, melena, hematemasis : Denies dysuria, increased frequency, urgency, hematuria Heme: Denies ease of bleeding or bruising MSK: Denies joint pain, limited ROM Skin: Denies rashes, ulcers, color changes Neuro: Denies JAMESON, paresthesias, focal deficits, ataxia - Constitutional Vitals: Temp Pulse Resp BP Pulse Ox 97.7 F 87 14 106/68 98 11/27/17 01:58 11/27/17 01:58 11/27/17 01:58 11/27/17 01:58 11/27/17 01:58 Exam: Gen: Vitals noted. Moderately distressed HEENT: Normocephalic, atraumatic Neck: Supple. No adenopathy. Cardiac: Rapid HR which is irregular, estimated to be 140-150, no murmur, +S1/S2 Pulmonary: CTA bilaterally, no wheezes, rales or rhonchi, equal chest expansion Abdomen: soft, Markedly tender to palpation particularly in the epigastric area and right upper quadrant. No masses or pulsation is noted Back: Nontender throughout. MSK: ROM intact, no joint swelling noted Extremities: no BLE edema, nontender calf, no cyanosis or clubbing Neuro: moves all extremities, no focal deficits. A&Ox3 Psych: Appropriate mood and behavior - Assessment and plan (1) Atrial fibrillation with RVR Current Visit: Yes Status: Acute Assessment and plan: Atrial fibrillation with rapid ventricular response HR appeared to be >130 on physical exam, likely secondary to pain Patient has been controlled on Lopressor 75mg TID in the past No indication that the patient is having decompensation of CHF/Respiratory status We will treat pain and give the patient 5mg IVP Lopressor to slow heart rate Continue 75mg PO Lopressor TID [employer] Continue Eliquis (2) AAA (abdominal aortic aneurysm) Current Visit: No Status: Chronic Assessment and plan: History of AAA repair in 2007 without rupture Given patients symptoms of upper abdominal pain with radiation to chest, abdomen and back, concern for vascular origin We will get CTA of Chest, abdomen and pelvis Close monitoring Qualifiers: Presence of rupture: without rupture Qualified Code(s): I71.4 - Abdominal aortic aneurysm, without rupture (3) CAD (coronary artery disease) Current Visit: No Status: Chronic Assessment and plan: CAD, Chronic Continue home meds Qualifiers: Coronary Disease-Associated Artery/Lesion type: [place] artery [place] vs. transplanted heart: [place] heart Associated angina: without angina Qualified Code(s): I25.10 - Atherosclerotic heart disease of [place] coronary artery without angina pectoris (4) Tobacco abuse Current Visit: No Status: Acute Assessment and plan: Chronic tobacco abuse Hold nicotine patches in acute chest pain (5) DVT prophylaxis Current Visit: No Status: Acute Assessment and plan: Patient is on Eliquis (6) Chest pain Current Visit: Yes Status: Acute Assessment and plan: Atypical chest pain, HEART Score 6 Patient does have significant risk factors for CAD, and has prior Stents in 2003 The patient did experience this chest pain while exerting himself, it was not improved with nitroglycerin and does not present as typical angina EKG was negative for ischemic changes, initial troponin is negative. Patient does have atrial fibrillation with RVR The location of the pain is primarily in his abdomen with radiation above and below Given his history of AAA with repair, there is some concern that this may have some vascular component CTA of the patient's chest, abdomen, pelvis for vascular compromise Treat the patients pain Qualifiers: Chest pain type: other chest pain Qualified Code(s): R07.89 - Other chest pain; R07.8 - Other chest pain - Time Spent With Patient Total time spent is greater than 50% in coordination of care (as documented) at patient's floor/unit and/or counseling patient: <Kyara Davis - Last Filed: 11/27/17 03:26> Date of Encounter: 11/27/17 Internal Medicine - H&P: HPI History of present illness: Mr. Shay is a 72 year old male All Systems PM: A 10-system review of systems was performed and is negative for pertinent findings except as documented above in the HPI. - Constitutional Vitals: Temp Pulse Resp BP Pulse Ox 97.7 F 116 14 122/77 98 11/27/17 01:58 11/27/17 03:07 11/27/17 01:58 11/27/17 03:07 11/27/17 01:58 Internal Med - H&P Results - Impressions ITS Impressions Abdomen/Pelvis CTA 11/27/17 02:00 IMPRESSION: Acute pancreatitis. Multiple gallstones. No acute findings in the chest. Patent aortic graft. No evidence of leak. D/ / Edd Johnston MD / Edd Johnston MD Interpreting Provider: Edd Johnston MD Chest CTA 11/27/17 02:00 IMPRESSION: Acute pancreatitis. Multiple gallstones. No acute findings in the chest. Patent aortic graft. No evidence of leak. D/ / Edd Johnston MD / Edd Johnston MD Interpreting Provider: Edd Johnston MD - Assessment and plan (1) Atrial fibrillation with RVR Current Visit: Yes Status: Acute (2) Tobacco abuse Current Visit: No Status: Acute (3) AAA (abdominal aortic aneurysm) Current Visit: No Status: Chronic Qualifiers: Presence of rupture: without rupture Qualified Code(s): I71.4 - Abdominal aortic aneurysm, without rupture (4) CAD (coronary artery disease) Current Visit: No Status: Chronic Qualifiers: Coronary Disease-Associated Artery/Lesion type: [place] artery [place] vs. transplanted heart: [place] heart Associated angina: without angina Qualified Code(s): I25.10 - Atherosclerotic heart disease of [place] coronary artery without angina pectoris (5) DVT prophylaxis Current Visit: No Status: Acute (6) Chest pain Current Visit: Yes Status: Acute Qualifiers: Chest pain type: other chest pain Qualified Code(s): R07.89 - Other chest pain; R07.8 - Other chest pain - Time Spent With Patient Total time spent is greater than 50% in coordination of care (as documented) at patient's floor/unit and/or counseling patient: - Attending Attestation Kenyon Shay is a 72 year old man with a history of atrial fibrillation on apixaban, coronary heart disease s/p PCI in 2004, diastolic heart failure and AAA repair in 2007. He is transferred here from [place] with the chief complaint of chest pain that reportedly subsided and the intent to rule out ACS. He presents here in a state of agony, writhing in severe pain and notably uncomfortable. He states that he started having pain earlier in the evening that goes up from his mid-abdomen into his mid-chest and radiates to his back. He says the pain started after working outside for most of the day and that he sought medical attention due to its persistence and increasing severity. He says that it feels different than when he had a heart attack at which time it was a crushing pain in his chest. He does admit to having been given nitroglycerin at [place] but that it never completely resolved and currently rates his pain at 7/10. He reports accompanying nausea as well but has not vomited. He continues to smoke. FHx remarkable for heart disease in father. Surgical hx as indicated above. All systems reviewed and negative except as listed above in the HPI. Physical exam remarkable for a thin man lying supine decubitus, in notable discomfort, pale dull skin, dry mucous membranes but no conjunctivae pallor, PERRLA, no JVD or LAD, diminished breath sounds in both lung yuan, no wheezing , rales or rhonchi, tachycardic and irregularly irregular, epigastrium significantly tender to palpation, no peripheral edema, AAOx3, no focal deficits , affect appropriate. EKG reviewed by me shows a.fib at a rate of 95 with low voltage. Will admit for chest pain; need to rule out aortic dissection emergently. STAT CTA chest/abdomen/pelvis ordered. Rule out perforated viscus and pancreatitis as well. Repeat labs, get troponin, lipase, lactate, order echo in the morning. Likely unable to tolerate stress test given his pain. Will monitor on telemetry. Repeat EKG. Rate control maneuvers. Continue anticoagulation. CLAY POE.
[2017-11-27] MEDS ORDERED: *HR* Metoprolol 5 MG/5 ML VIAL IVP ONE ×2 (02:33→05:37)
[2017-11-27] MEDS ORDERED: Ringers Solution, Lactated 500 ML IVC ONE (03:10)
[2017-11-27] MEDS: Ringers Solution, Lactated 1,000 ML IVC SCH ×3 (03:47→20:33)
[2017-11-27] MEDS: *HR* HYDROcodone/Acet 10/325 mg TABLET PO PRN ×2 (04:20→09:40)
[2017-11-27] MEDS: Apixaban 5 MG TABLET PO SCH ×2 (07:20→20:29)
[2017-11-27] MEDS: Aspirin Enteric Coated 81 MG Tablet PO SCH (07:20)
[2017-11-27] MEDS: (Omega-3 Fatty Acids [Fish Oil] 1,200 MG) PO SCH ×2 (07:21→21:01)
[2017-11-27 07:41] LABS: Albumin 3.7 g/dL (3.5-5.7); Albumin/Globulin Ratio 1.7 (1.1-2.2); Amylase 227 Units/L (29-103); Bilirubin,Direct 0.2 mg/dL (0.0-0.2); Bilirubin,Indirect 0.4 mg/dL (0.0-1.2); Bilirubin,Total 0.6 mg/dL (0.3-1.0); Globulin 2.2 g/dL (2.4-3.5); Lipase 489 Units/L (11-82); Total Protein 5.9 g/dL (6.4-8.9)
[2017-11-27] MEDS ORDERED: Furosemide 40 MG TABLET PO SCH (09:00)
[2017-11-27] MEDS: Ondansetron 4 MG/2 ML VIAL IVP PRN ×2 (09:42→20:29)
[2017-11-27 11:25] LABS: Basophils % 0.1 %; Hematocrit 44.8 % (37.5-50.1); Hemoglobin 15.1 g/dL (12.9-16.9); Immature Granulocytes % 0.4 % (0-4); Lymphocytes # 1.6 K/mcL (0.6-4.6); Lymphocytes % 10.2 %; Mean Corpuscular HGB Conc 33.7 g/dL (31.6-35.5); Mean Corpuscular Hemoglobin 31.8 pg (28.0-33.3); Mean Corpuscular Volume 94.3 fL (83.0-100.0); Mean Platelet Volume 11.1 fL (9.4-12.4); Monocytes % 6.5 %; Neutrophils # 12.7 K/mcL (1.6-8.9); Platelet Count 136 K/mcL (140-400); Red Blood Count 4.75 M/mcL (4.19-5.50); Red Cell Distribution Width 13.9 % (11.5-14.5); Segmented Neutrophils % 82.8 %
[2017-11-27 11:46] LABS: BUN/Creatinine Ratio 23 (6-26); Blood Urea Nitrogen 18 mg/dL (8-23); Calcium 9.7 mg/dL (8.6-10.3); Carbon Dioxide 30 mEq/L (23-29); Chloride 103 mEq/L (98-107); Glucose 188 mg/dL (70-105); Osmolality,Calculated 295 (280-300); Potassium 4.6 mEq/L (3.5-5.1); Sodium 139 mEq/L (136-145); eGFR For Non-African Americans > 60 (> 60)
--- NOTE | 2017-11-27 12:15 | Internal Med Progress Note ---
<Maryam Sorenson - Last Filed: 11/27/17 14:55> Hospitalist Progress Note - Encounter Date of Encounter: 11/27/17 Time of Encounter: 11:03 - Subjective Interval History: Mr. Shay is a 72 year old male with history of atrial fibrillation, COPD, CAD status post 3 stents in 2003, hyperlipidemia, hypertension and AAA repair in 2007 who presented to [place] ED with chest pain. Complained of nausea but denied vomiting. Initially there was concern for cardiac ischemia or aortic aneurysm or dissection. However patient had a negative troponin, EKG show AFib RVR without ischemic changes, his pain did not imporve with nitro, and was found on CTA AP to have acute pancreatitis with multiple small gallstones noted with pancreatic fat stranding. Since transferring, he had at least one episode of vomiting this morning and continues to feel nauseous. He admits to some RUQ abdominal pain, which seems to be well controlled with pain medication. He denies any chest pain or SOB. - Exam Vitals: Temp Pulse Resp BP Pulse Ox 98.2 F 110 20 116/76 95 11/27/17 11:17 11/27/17 11:17 11/27/17 11:17 11/27/17 11:17 11/27/17 11:17 Exam: Gen: Vitals noted. Somnelent. HEENT: Normocephalic, atraumatic Cardiac: Regular rate, irregular rhythm, HR in the 90s on the monitor, no murmur , normal S1/S2 Pulmonary: CTAB, no wheezes Abdomen: soft, mild tenderness to palpation in the RUQ Extremities: no BLE edema, nontender calf, no cyanosis or clubbing Neuro: moves all extremities, no focal deficits. A&Ox3 Psych: Appropriate mood and behavior - Assessment and Plan (1) Acute pancreatitis Current Visit: Yes Status: Acute Assessment and Plan: Likely secondary to gall stones. Patient denies excessive alcohol consumption. 1 /2ppd smoker x 60 years. CTA AP 11/27 - Acute pancreatitis with multiple small gallstone and pancreatic fat stranding. Lipase 489 Triglycerides pending Continue IVFs Continue pain management, Oxy 10 SL Q6 PRN NPO currently, will advance diet as patient tolerates (2) Atrial fibrillation with RVR Current Visit: Yes Status: Acute Assessment and Plan: Presented on EKG in AFib RVR, histoyr of AFib, likely secondary to acute pancreatitis HR 80-150s per nursing this morning Previously rate controlled on Lopressor 75mg TID, however continued to have elevated HR Started Cardizem with initial 10mg bolus, now on drip with titration PRN Patient now with HR 90s, still AFib Will wean Cardizem drip as tolerated Continue cardiac telemetry Will monitor closely (3) Chest pain Current Visit: Yes Status: Acute Assessment and Plan: Atypical chest pain on presentation, likely secondary to acute pancreatitis, less likely cardiac or dissection EKG showed AFib RVR without ischemic changes CTA AP - Acute pancreatitis with multiple small gallstones. Patent aorta without signs of leak. Topronin negative x 1 Will continue to monitor (4) AAA (abdominal aortic aneurysm) Current Visit: No Status: Chronic Assessment and Plan: History of AAA repair in 2007 without rupture CTA A/P 11/27 - patent aortic graft, no evidence of leak (5) CAD (coronary artery disease) Current Visit: No Status: Chronic Assessment and Plan: Chronic, stable Continue home meds (6) Tobacco abuse Current Visit: No Status: Acute Assessment and Plan: 1/2 ppd smoker x 60 years (used to smoke up to 3ppd) Discussed smoking cessation Patient states that he smokes to ease anxiety, not interested in quitting at this time DVT Prophylaxis: Eloquis - Time Spent with Patient Total time spent is greater than 50% in coordination of care (as documented) at patient's floor/unit and/or counseling patient: less than 15 minutes Internal Medicine: Result - Labs CBC & Chem 7: 11/27/17 11:06 11/27/17 11:06 Labs: Short CBC 11/27/17 Range/Units 11:06 WBC 15.3 H (4.3-11.1) K/mcL Hgb 15.1 (12.9-16.9) g/dL Hct 44.8 (37.5-50.1) % Plt Count 136 L (140-400) K/mcL Neutrophils # 12.7 H (1.6-8.9) K/mcL BMP 11/27/17 11:06 Sodium 139 Potassium 4.6 Chloride 103 Carbon Dioxide 30 H BUN 18 Creatinine 0.79 Glucose 188 H Calcium 9.7 Liver Function 11/27/17 Range/Units 07:03 Total Bilirubin 0.6 (0.3-1.0) mg/dL Direct Bilirubin 0.2 (0.0-0.2) mg/dL AST 11 L (13-39) Units/L ALT 6 L (7-52) Units/L Alkaline Phosphatase 72 (34-104) Units/L Albumin 3.7 (3.5-5.7) g/dL - Impressions Impressions Abdomen/Pelvis CTA 11/27/17 02:00 IMPRESSION: Acute pancreatitis. Multiple gallstones. No acute findings in the chest. Patent aortic graft. No evidence of leak. D/ / Edd Johnston MD / Edd Johnston MD Interpreting Provider: Edd Johnston MD Chest CTA 11/27/17 02:00 IMPRESSION: Acute pancreatitis. Multiple gallstones. No acute findings in the chest. Patent aortic graft. No evidence of leak. D/ / Edd Johnston MD / Edd Johnston MD Interpreting Provider: Edd Johnston MD Consult Discharge Plan - Plan [facility]errals: [facility]Primary Care Provider[facility] - <Marcell Okeefe - Last Filed: 11/27/17 15:55> Hospitalist Progress Note - Encounter Date of Encounter: 11/27/17 - Exam Vitals: Temp Pulse Resp BP Pulse Ox 98.2 F 93 20 111/66 92 11/27/17 15:31 11/27/17 15:31 11/27/17 15:31 11/27/17 15:31 11/27/17 15:31 - Assessment and Plan (1) Atrial fibrillation with RVR Current Visit: Yes Status: Acute (2) Tobacco abuse Current Visit: No Status: Acute (3) AAA (abdominal aortic aneurysm) Current Visit: No Status: Chronic (4) CAD (coronary artery disease) Current Visit: No Status: Chronic (5) DVT prophylaxis Current Visit: No Status: Acute (6) Chest pain Current Visit: Yes Status: Acute - Time Spent with Patient Total time spent is greater than 50% in coordination of care (as documented) at patient's floor/unit and/or counseling patient: Internal Medicine: Result - Labs CBC & Chem 7: 11/27/17 11:06 11/27/17 11:06 Labs: Short CBC 11/27/17 Range/Units 11:06 WBC 15.3 H (4.3-11.1) K/mcL Hgb 15.1 (12.9-16.9) g/dL Hct 44.8 (37.5-50.1) % Plt Count 136 L (140-400) K/mcL Neutrophils # 12.7 H (1.6-8.9) K/mcL BMP 11/27/17 11:06 Sodium 139 Potassium 4.6 Chloride 103 Carbon Dioxide 30 H BUN 18 Creatinine 0.79 Glucose 188 H Calcium 9.7 Liver Function 11/27/17 Range/Units 07:03 Total Bilirubin 0.6 (0.3-1.0) mg/dL Direct Bilirubin 0.2 (0.0-0.2) mg/dL AST 11 L (13-39) Units/L ALT 6 L (7-52) Units/L Alkaline Phosphatase 72 (34-104) Units/L Albumin 3.7 (3.5-5.7) g/dL - Impressions Impressions Abdomen/Pelvis CTA 11/27/17 02:00 IMPRESSION: Acute pancreatitis. Multiple gallstones. No acute findings in the chest. Patent aortic graft. No evidence of leak. D/ / Edd Johnston MD / Edd Johnston MD Interpreting Provider: Edd Johnston MD Chest CTA 11/27/17 02:00 IMPRESSION: Acute pancreatitis. Multiple gallstones. No acute findings in the chest. Patent aortic graft. No evidence of leak. D/ / Edd Johnston MD / Edd Johnston MD Interpreting Provider: Edd Johnston MD - Attending Attestation I examined this patient and my medical decision-making was reviewed with the Resident Physician on 11/27/17. I agree with the documented findings, disposition and treatment plan as described except to the extent set forth below. Mr Shay was admitted earlier today with acute pancreatitis and rapid atrial fibrillation. He is nauseous and is now on Cardizem drip. Exam alert Comfortable Mucus membranes dry Heart irreg and tachy No wheeze abd tender R side Agree with assessment and plan as above and in H&P <Maryam Sorenson - Last Filed: 11/27/17 14:55> (3) Chest pain Qualifiers: Chest pain type: other chest pain Qualified Code(s): R07.89 - Other chest pain; R07.8 - Other chest pain (4) AAA (abdominal aortic aneurysm) Qualifiers: Presence of rupture: without rupture Qualified Code(s): I71.4 - Abdominal aortic aneurysm, without rupture (5) CAD (coronary artery disease) Qualifiers: Coronary Disease-Associated Artery/Lesion type: [place] artery [place] vs. transplanted heart: [place] heart Associated angina: without angina Qualified Code(s): I25.10 - Atherosclerotic heart disease of [place] coronary artery without angina pectoris <Marcell Okeefe A - Last Filed: 11/27/17 15:55> (3) AAA (abdominal aortic aneurysm) Qualifiers: Presence of rupture: without rupture Qualified Code(s): I71.4 - Abdominal aortic aneurysm, without rupture (4) CAD (coronary artery disease) Qualifiers: Coronary Disease-Associated Artery/Lesion type: [place] artery [place] vs. transplanted heart: [place] heart Associated angina: without angina Qualified Code(s): I25.10 - Atherosclerotic heart disease of [place] coronary artery without angina pectoris (6) Chest pain Qualifiers: Chest pain type: other chest pain Qualified Code(s): R07.89 - Other chest pain; R07.8 - Other chest pain
[2017-11-27 15:58] LABS: Triglycerides 91 mg/dL (< 150)
[2017-11-27] MEDS: Doxycycline 100 MG in 0.9 % Sodium Chloride Mini Bag 100 ML IVPB SCH (17:11)
[2017-11-28] MEDS: Ringers Solution, Lactated 1,000 ML IVC SCH ×3 (04:44→23:05)
[2017-11-28] MEDS: OXYCODONE Oral CONC 10 MG/0.5 ML ORAL.SYG SL PRN ×2 (05:04→13:07)
[2017-11-28] MEDS: Doxycycline 100 MG in 0.9 % Sodium Chloride Mini Bag 100 ML IVPB SCH ×2 (05:05→18:13)
--- NOTE | 2017-11-28 09:26 | Internal Med Progress Note ---
<Edd Fontenot A - Last Filed: 11/28/17 15:14> Hospitalist Progress Note - Encounter Date of Encounter: 11/28/17 Time of Encounter: 09:23 - Subjective Interval History: pt seen and examined at bedside this morning. resting comfortably, NAD. states that is abdominal pain has improved. would like to advance his diet. ROS: pt denies any changes in vision or hearing, palpitations, chest pain, sob, abdominal pain, n/v/d - Exam Vitals: Temp Pulse Resp BP Pulse Ox 97.8 F 113 21 103/54 90 11/28/17 08:06 11/28/17 08:06 11/28/17 08:06 11/28/17 08:06 11/28/17 08:06 Exam: Gen: pt awake and alert, no acute distress HEENT: Normocephalic, atraumatic Cardiac: irregular rhythm, rate in 80s, on cardizem Resp: CTA b/l; decreased breath sounds to ascultation Abdomen: soft, nT/ND, normoactive bowel sounds Extremities: no BLE edema, no cyanosis or clubbing Neuro: moves all extremities, no focal deficits. A&Ox3 Psych: Appropriate mood and behavior - Assessment and Plan (1) Acute pancreatitis Current Visit: Yes Status: Acute Assessment and Plan: ddx includes, triglycerides, tobacco use, gallstones, etoh Pt denies hx of excessive etoh consumption, possibly secondary to gallstones 30+ pk year smoking hx CTA 11/27 suggestive of pancreatitis Lipase 489 on admission, AST/ALT nonelevated, triglycerides wnl pt admits to symptomatic improvements today, would like to try diet Continue fluids, pain mgmt Advance diet as tolerated US of GB for further evaluation for ductal dilitation (2) Atrial fibrillation with RVR Current Visit: Yes Status: Acute Assessment and Plan: AFib w/ RVR on presentation hx of afib, was previously rate controlled with Lopressor 75 mg TID HR 80s on exam this morning Rate controlled with Cardizem drip Will wean Cardizem drip as tolerated Continue cardiac telemetry CHADs VASC-3 (continue eliquis) HAS BLED score-2 moderate risk of major bleeding (3) AAA (abdominal aortic aneurysm) Current Visit: No Status: Chronic Assessment and Plan: History of AAA repair in 2007 without rupture CTA A/P 11/27 - patent aortic graft, no evidence of leak (4) CAD (coronary artery disease) Current Visit: No Status: Chronic Assessment and Plan: continue home meds (5) Tobacco abuse Current Visit: No Status: Chronic Assessment and Plan: 30+ pk year hx cessation encouraged DVT Prophylaxis: continue eloquis - Time Spent with Patient Total time spent is greater than 50% in coordination of care (as documented) at patient's floor/unit and/or counseling patient: Internal Medicine: Result - Labs CBC & Chem 7: 11/28/17 09:32 11/28/17 09:32 Labs: Short CBC 11/27/17 Range/Units 11:06 WBC 15.3 H (4.3-11.1) K/mcL Hgb 15.1 (12.9-16.9) g/dL Hct 44.8 (37.5-50.1) % Plt Count 136 L (140-400) K/mcL Neutrophils # 12.7 H (1.6-8.9) K/mcL BMP 11/27/17 11:06 Sodium 139 Potassium 4.6 Chloride 103 Carbon Dioxide 30 H BUN 18 Creatinine 0.79 Glucose 188 H Calcium 9.7 Consult Discharge Plan - Plan [facility]: [facility]Primary Care Provider[facility] - <Marcell Okeefe - Last Filed: 11/28/17 15:29> Hospitalist Progress Note - Encounter Date of Encounter: 11/28/17 - Exam Vitals: Temp Pulse Resp BP Pulse Ox 97.6 F 80 19 109/71 89 11/28/17 12:04 11/28/17 12:04 11/28/17 12:04 11/28/17 12:04 11/28/17 12:04 - Assessment and Plan (1) Atrial fibrillation with RVR Current Visit: Yes Status: Acute (2) Tobacco abuse Current Visit: No Status: Chronic (3) AAA (abdominal aortic aneurysm) Current Visit: No Status: Chronic (4) CAD (coronary artery disease) Current Visit: No Status: Chronic (5) DVT prophylaxis Current Visit: No Status: Acute (6) Chest pain Current Visit: Yes Status: Acute (7) Acute pancreatitis Current Visit: Yes Status: Suspected (8) Atrial fibrillation Current Visit: No Status: Chronic (9) COPD (chronic obstructive pulmonary disease) Current Visit: No Status: Chronic - Time Spent with Patient Total time spent is greater than 50% in coordination of care (as documented) at patient's floor/unit and/or counseling patient: Internal Medicine: Result - Labs CBC & Chem 7: 11/28/17 09:32 11/28/17 09:32 Labs: Short CBC 11/28/17 Range/Units 09:32 WBC 9.4 (4.3-11.1) K/mcL Hgb 13.7 (12.9-16.9) g/dL Hct 41.4 (37.5-50.1) % Plt Count 100 L (140-400) K/mcL Neutrophils # 7.1 (1.6-8.9) K/mcL BMP 11/27/17 11/28/17 11:06 09:32 Sodium 139 140 Potassium 4.6 3.8 Chloride 103 106 Carbon Dioxide 30 H 28 BUN 18 18 Creatinine 0.79 0.64 L Glucose 188 H 94 Calcium 9.7 8.8 - Impressions Impressions Echocardiogram 11/28/17 08:00 Impressions: LVEF 55%. Indeterminate diastolic function. Normal right ventricular structure and function. Mild mitral regurgitation. Mild tricuspid regurgitation. - Attending Attestation The history, physical exam, and medical decision making was performed by the medical student either while I was physically present and actively involved or I personally re-performed the exam and medical decision making. I have verified the accuracy of the medical student's documentation with regards to the history, physical exam findings, and medical decision making on . Mr Shay is currently in observation for acute pancreatitis and a fib. He has gallstones on CT. He remains moderate to high risk due to potential for worsening clinical status. Mr Shay says his abdomen feels better. He is hungry. Heart is rate controlled at this point. He says he is not on oxygen though is on 3 liters now. No fever or chills. No N/V/D. Exam alert Comfortable Mucus membranes dry Heart irreg and not tachy No wheeze Abd soft and nontender now. No edema Moves all extremities I/P 1. Acute pancreatitis - seems to be clinically improved. Will check ultrasound first (gallstones) and then allow to eat. 2. A fib - on cardizem drip. Will change to PO when taking better in. 3. Hypoxic resp failure acute - sat 89% on 2 liters. Will need to have oxygen qualification before discharge. Further diagnoses and plan as above. <Edd Fontenot A - Last Filed: 11/28/17 15:14> (3) AAA (abdominal aortic aneurysm) Qualifiers: Presence of rupture: without rupture Qualified Code(s): I71.4 - Abdominal aortic aneurysm, without rupture (4) CAD (coronary artery disease) Qualifiers: Coronary Disease-Associated Artery/Lesion type: [place] artery [place] vs. transplanted heart: [place] heart Associated angina: without angina Qualified Code(s): I25.10 - Atherosclerotic heart disease of [place] coronary artery without angina pectoris <Marcell kOeefe A - Last Filed: 11/28/17 15:29> (3) AAA (abdominal aortic aneurysm) Qualifiers: Presence of rupture: without rupture Qualified Code(s): I71.4 - Abdominal aortic aneurysm, without rupture (4) CAD (coronary artery disease) Qualifiers: Coronary Disease-Associated Artery/Lesion type: [place] artery [place] vs. transplanted heart: [place] heart Associated angina: without angina Qualified Code(s): I25.10 - Atherosclerotic heart disease of [place] coronary artery without angina pectoris (6) Chest pain Qualifiers: Chest pain type: other chest pain Qualified Code(s): R07.89 - Other chest pain; R07.8 - Other chest pain (7) Acute pancreatitis Qualifiers: Pancreatitis type: biliary Acute pancreatitis complication: no infection or necrosis Qualified Code(s): K85.10 - Biliary acute pancreatitis without necrosis or infection (8) Atrial fibrillation Qualifiers: Atrial fibrillation type: chronic Qualified Code(s): I48.2 - Chronic atrial fibrillation (9) COPD (chronic obstructive pulmonary disease) Qualifiers: COPD type: unspecified COPD Qualified Code(s): J44.9 - Chronic obstructive pulmonary disease, unspecified
[2017-11-28 09:51] LABS: Basophils % 0.2 %; Hematocrit 41.4 % (37.5-50.1); Hemoglobin 13.7 g/dL (12.9-16.9); Immature Granulocytes % 0.1 % (0-4); Lymphocytes # 1.4 K/mcL (0.6-4.6); Lymphocytes % 15.3 %; Mean Corpuscular HGB Conc 33.1 g/dL (31.6-35.5); Mean Corpuscular Hemoglobin 31.8 pg (28.0-33.3); Mean Corpuscular Volume 96.1 fL (83.0-100.0); Mean Platelet Volume 11.1 fL (9.4-12.4); Monocytes # 0.8 K/mcL (0.0-1.3); Monocytes % 8.3 %; Neutrophils # 7.1 K/mcL (1.6-8.9); Platelet Count 100 K/mcL (140-400); Red Blood Count 4.31 M/mcL (4.19-5.50); Red Cell Distribution Width 14.2 % (11.5-14.5); Segmented Neutrophils % 76.1 %
[2017-11-28 10:08] LABS: BUN/Creatinine Ratio 28 (6-26); Blood Urea Nitrogen 18 mg/dL (8-23); Calcium 8.8 mg/dL (8.6-10.3); Carbon Dioxide 28 mEq/L (23-29); Chloride 106 mEq/L (98-107); Glucose 94 mg/dL (70-105); Osmolality,Calculated 292 (280-300); Potassium 3.8 mEq/L (3.5-5.1); Sodium 140 mEq/L (136-145); eGFR For Non-African Americans > 60 (> 60)
[2017-11-28] MEDS: Apixaban 5 MG TABLET PO SCH ×2 (11:06→23:07)
[2017-11-28] MEDS: Aspirin Enteric Coated 81 MG Tablet PO SCH (11:07)
[2017-11-28] MEDS: (Omega-3 Fatty Acids [Fish Oil] 1,200 MG) PO SCH (11:08)
--- NOTE | 2017-11-28 11:14 | Electrocardiograph Report ---
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
--- NOTE | 2017-11-28 11:15 | Electrocardiograph Report ---
[address] [address] Test Date: 2017-11-27 Pat Name: Kenyon Shay Department: 113 Room: E27 Gender: M Sccm Administrator: [id number] : 1945 Requested By: Marcell Okeefe Order Number: [id number] Reading MD: Rupa Clark Measurements Intervals [place] Rate: 102 P: [place]: 0 QRS: -10 QRSD: 88 T: 29 QT: 332 QTc: 391 Interpretive Statements ATRIAL FIBRILLATION WITH RAPID VENTRICULAR RESPONSE LOW QRS VOLTAGE IN EXTREMITY LEADS NONSPECIFIC ST & T-WAVE ABNORMALITY ABNORMAL RHYTHM ECG Electronically Signed On 11-28-2017 11:14:22 EDT by Rupa Clark
--- NOTE | 2017-11-28 11:15 | Electrocardiograph Report ---
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
--- NOTE | 2017-11-28 13:05 | Electrocardiograph Report ---
[address] [address] Test Date: 2017-11-27 Pat Name: Kenyon Shay Department: 113 Room: E27 Gender: M Public Policy Associate: [id number] : 1945 Requested By: Marcell Okeefe Order Number: [id number] Reading MD: Rupa Clark Measurements Intervals [place] Rate: 117 P: [place]: 0 QRS: -19 QRSD: 86 T: 55 QT: 299 QTc: 369 Interpretive Statements ATRIAL FIBRILLATION WITH RAPID VENTRICULAR RESPONSE LOW QRS VOLTAGE IN EXTREMITY LEADS NONSPECIFIC ST & T-WAVE ABNORMALITY ABNORMAL RHYTHM ECG Electronically Signed On 11-28-2017 13:03:57 EDT by Rupa Clark
[2017-11-29] MEDS: (Omega-3 Fatty Acids [Fish Oil] 1,200 MG) PO SCH ×3 (00:19→21:49)
[2017-11-29 04:53] LABS: Basophils % 0.1 %
[2017-11-29 04:54] LABS: Eosinophils % 0.1 %; Hematocrit 38.4 % (37.5-50.1); Hemoglobin 12.6 g/dL (12.9-16.9); Immature Granulocytes % 0.5 % (0-4); Immature Platelets 7.9 % (1.1-6.1); Lymphocytes # 1.3 K/mcL (0.6-4.6); Lymphocytes % 10.8 %; Mean Corpuscular HGB Conc 32.8 g/dL (31.6-35.5); Mean Corpuscular Hemoglobin 31.7 pg (28.0-33.3); Mean Corpuscular Volume 96.7 fL (83.0-100.0); Mean Platelet Volume 11.9 fL (9.4-12.4); Monocytes # 1.1 K/mcL (0.0-1.3); Monocytes % 9.3 %; Neutrophils # 9.7 K/mcL (1.6-8.9); Red Blood Count 3.97 M/mcL (4.19-5.50); Red Cell Distribution Width 14.1 % (11.5-14.5); Segmented Neutrophils % 79.2 %
[2017-11-29 05:02] LABS: Platelet Count 88 K/mcL (140-400)
[2017-11-29] MEDS: Doxycycline 100 MG in 0.9 % Sodium Chloride Mini Bag 100 ML IVPB SCH (05:02)
[2017-11-29 05:07] LABS: BUN/Creatinine Ratio 30 (6-26); Blood Urea Nitrogen 19 mg/dL (8-23); Calcium 8.7 mg/dL (8.6-10.3); Carbon Dioxide 26 mEq/L (23-29); Chloride 105 mEq/L (98-107); Glucose 91 mg/dL (70-105); Osmolality,Calculated 284 (280-300); Sodium 136 mEq/L (136-145); eGFR For Non-African Americans > 60 (> 60)
[2017-11-29] MEDS: Ringers Solution, Lactated 1,000 ML IVC SCH (07:30)
[2017-11-29] MEDS: Aspirin Enteric Coated 81 MG Tablet PO SCH (08:31)
[2017-11-29] MEDS: Apixaban 5 MG TABLET PO SCH ×2 (08:31→21:10)
[2017-11-29] MEDS: OXYCODONE Oral CONC 10 MG/0.5 ML ORAL.SYG SL PRN (08:33)
--- NOTE | 2017-11-29 13:54 | Internal Med Progress Note ---
<Maryam Sorenson - Last Filed: 11/29/17 15:50> Hospitalist Progress Note - Encounter Date of Encounter: 11/29/17 Time of Encounter: 13:51 - Subjective Interval History: Mr. Shay is a 72 year old male with history of atrial fibrillation, COPD, CAD status post 3 stents in 2003, hyperlipidemia, hypertension and AAA repair in 2007 who presented to [facility] ED with chest pain. Complained of nausea but denied vomiting. Initially there was concern for cardiac ischemia or aortic aneurysm or dissection. However patient had a negative troponin, EKG showed AFib RVR without ischemic changes, his pain did not improve with nitro, and was found on CTA AP to have acute pancreatitis with multiple small gallstones noted with pancreatic fat stranding. Liver US showed cholelithiasis without acute cholecystitis. Patient feeling well this morning and tolerating diet. He denies any nausea, vomiting, abdominal pain, lightheadedness, dizziness, SOB, chest pain, or palpitations. He admits to back pain which he says is chronic. The chest/back pain he had on presentation has resolved. - Exam Vitals: Temp Pulse Resp BP Pulse Ox 98.6 F 86 19 124/73 94 11/29/17 11:18 11/29/17 11:18 11/29/17 11:18 11/29/17 11:46 11/29/17 11:18 Exam: Gen: Sitting comfortably on the edge of the bed, NAD HEENT: Normocephalic, atraumatic Cardiac: Irregular rhythm, rate in 90s, on cardizem ggt Resp: CTAB; decreased breath sounds bilaterally in the bases Abdomen: soft, non-tender, bowel sounds noted Extremities: no BLE edema, no cyanosis or clubbing Neuro: No focal deficits. A&Ox3 Psych: Appropriate mood and behavior - Assessment and Plan (1) Acute pancreatitis Current Visit: Yes Status: Acute Assessment and Plan: Likely secondary to gall stones. Patient denies excessive alcohol consumption. 1 /2 to 3ppd smoker x 60 years. CTA AP 11/27 - Acute pancreatitis with multiple small gallstone and pancreatic fat stranding. Liver US 11/28 - Cholelithiasis with no evidence of acute cholecystitis Lipase 489 Triglycerides 91 LFTs wnl WBC 15.3 -> 9.4 -> 12.3 Hgb 15.1 -> 13.7 -> 12.6 s/p 6L IVFs, symptoms have resolved, tolerating regular diet Continue home pain medication (2) Atrial fibrillation with RVR Current Visit: Yes Status: Acute Assessment and Plan: Hx of AFib, presented on EKG in AFib RVR, likely secondary to acute pancreatitis HR 80-100s today CHADs VASC-3 (continue eliquis) HAS BLED score-2 moderate risk of major bleeding Transition Cardizem ggt to oral, Cardizem 60 Q6HR Continue cardiac telemetry Will monitor closely (3) Chest pain Current Visit: Yes Status: Resolved Assessment and Plan: Atypical chest pain on presentation, likely secondary to acute pancreatitis, less likely cardiac or dissection EKG showed AFib RVR without ischemic changes CTA AP - Acute pancreatitis with multiple small gallstones. Patent aorta without signs of leak. Topronin negative x 1 Chest pain has now resolved. Will monitor for reoccurrence. (4) AAA (abdominal aortic aneurysm) Current Visit: No Status: Chronic Assessment and Plan: History of AAA repair in 2007 without rupture CTA A/P 11/27 - patent aortic graft, no evidence of leak (5) CAD (coronary artery disease) Current Visit: No Status: Chronic Assessment and Plan: Chronic, stable Continue home meds (6) Tobacco abuse Current Visit: No Status: Chronic Assessment and Plan: 1/2 to 3ppd smoker x 60 years Discussed smoking cessation Patient states that he smokes to ease anxiety, not interested in quitting at this time (7) Chronic low back pain Current Visit: Yes Status: Acute Assessment and Plan: Hx of chronic LBP [place] 10/325 and Flexeril 5mg TID at home Complaining of back pain this morning, same are chronic pain abd/back pain from presentation has resolved Continue home pain medication DVT Prophylaxis: continue eloquis - Time Spent with Patient Total time spent is greater than 50% in coordination of care (as documented) at patient's floor/unit and/or counseling patient: Internal Medicine: Result - Labs CBC & Chem 7: 11/29/17 04:15 11/29/17 04:15 Labs: Short CBC 11/29/17 Range/Units 04:15 WBC 12.3 H (4.3-11.1) K/mcL Hgb 12.6 L (12.9-16.9) g/dL Hct 38.4 (37.5-50.1) % Plt Count 88 L (140-400) K/mcL Neutrophils # 9.7 H (1.6-8.9) K/mcL BMP 11/29/17 04:15 Sodium 136 Potassium 4.0 Chloride 105 Carbon Dioxide 26 BUN 19 Creatinine 0.63 L Glucose 91 Calcium 8.7 - Impressions Impressions Liver Ultrasound 11/28/17 18:00 IMPRESSION: 1. Cholelithiasis with no evidence of acute cholecystitis. 2. Small right pleural effusion. D/ / Maldonado Deng MD / Maldonado Deng MD Interpreting Provider: Maldonado Deng MD - VTE Documentation of Mechanical Device: Intermittent pneumatic compression device Consult Discharge Plan - Plan [facility]errals: [facility] [Primary Care Provider] - <Brigette Galvan - Last Filed: 11/29/17 18:03> Hospitalist Progress Note - Encounter Date of Encounter: 11/29/17 - Exam Vitals: Temp Pulse Resp BP Pulse Ox 98.4 F 87 17 118/83 93 11/29/17 15:00 11/29/17 15:00 11/29/17 15:00 11/29/17 15:00 11/29/17 15:00 - Assessment and Plan (1) Atrial fibrillation with RVR Current Visit: Yes Status: Acute (2) COPD (chronic obstructive pulmonary disease) Current Visit: No Status: Chronic (3) Tobacco abuse Current Visit: No Status: Chronic (4) AAA (abdominal aortic aneurysm) Current Visit: No Status: Chronic (5) CAD (coronary artery disease) Current Visit: No Status: Chronic (6) DVT prophylaxis Current Visit: No Status: Acute (7) Atrial fibrillation Current Visit: No Status: Chronic (8) Chest pain Current Visit: Yes Status: Resolved (9) Acute pancreatitis Current Visit: Yes Status: Acute - Time Spent with Patient Total time spent is greater than 50% in coordination of care (as documented) at patient's floor/unit and/or counseling patient: Internal Medicine: Result - Labs CBC & Chem 7: 11/29/17 04:15 11/29/17 04:15 Labs: Short CBC 11/29/17 Range/Units 04:15 WBC 12.3 H (4.3-11.1) K/mcL Hgb 12.6 L (12.9-16.9) g/dL Hct 38.4 (37.5-50.1) % Plt Count 88 L (140-400) K/mcL Neutrophils # 9.7 H (1.6-8.9) K/mcL BMP 11/29/17 04:15 Sodium 136 Potassium 4.0 Chloride 105 Carbon Dioxide 26 BUN 19 Creatinine 0.63 L Glucose 91 Calcium 8.7 - Impressions Impressions Liver Ultrasound 11/28/17 18:00 IMPRESSION: 1. Cholelithiasis with no evidence of acute cholecystitis. 2. Small right pleural effusion. D/ / Maldonado Deng MD / Maldonado Deng MD Interpreting Provider: Maldonado Deng MD - Attending Attestation I examined this patient and my medical decision-making was reviewed with the Resident Physician Dr. Sorenson. I agree with the documented findings, disposition and treatment plan as described except to the extent set forth below. Mr. Shay is a 72 year old male with history of atrial fibrillation, COPD, CAD status post 3 stents in 2003, hyperlipidemia, hypertension and AAA repair in 2007 who presented to [facility] ED with abdominal pain. He was admitted here with acute pancreeatitis. He happened to acute hypoxic resp failure with COPD exacerbation. Pt states his abdominal pain better today. Gen: A, A, O x 3 chest: Diminished BS b/l Heart: S1S2+ Afib No murmurs Abd: Soft, NT a.p 1. Acute pancreatitis improving started on soft diet 2. Afib with RVR Improved switch to PO Cardizem along with home med Metoprolol on Eliquis for anti coag 3. Acute COPD exacerbation 4. Acute hypoxic resp failure Duoneb and O2 Started on steroids <Maryam Sorenson Kerri - Last Filed: 11/29/17 15:50> (1) Acute pancreatitis Qualifiers: Pancreatitis type: biliary Acute pancreatitis complication: no infection or necrosis Qualified Code(s): K85.10 - Biliary acute pancreatitis without necrosis or infection (3) Chest pain Qualifiers: Chest pain type: other chest pain Qualified Code(s): R07.89 - Other chest pain; R07.8 - Other chest pain (4) AAA (abdominal aortic aneurysm) Qualifiers: Presence of rupture: without rupture Qualified Code(s): I71.4 - Abdominal aortic aneurysm, without rupture (5) CAD (coronary artery disease) Qualifiers: Coronary Disease-Associated Artery/Lesion type: [place] artery [place] vs. transplanted heart: [place] heart Associated angina: without angina Qualified Code(s): I25.10 - Atherosclerotic heart disease of [place] coronary artery without angina pectoris <Brigette Galvan - Last Filed: 11/29/17 18:03> (2) COPD (chronic obstructive pulmonary disease) Qualifiers: COPD type: unspecified COPD Qualified Code(s): J44.9 - Chronic obstructive pulmonary disease, unspecified (4) AAA (abdominal aortic aneurysm) Qualifiers: Presence of rupture: without rupture Qualified Code(s): I71.4 - Abdominal aortic aneurysm, without rupture (5) CAD (coronary artery disease) Qualifiers: Coronary Disease-Associated Artery/Lesion type: [place] artery [place] vs. transplanted heart: [place] heart Associated angina: without angina Qualified Code(s): I25.10 - Atherosclerotic heart disease of [place] coronary artery without angina pectoris (7) Atrial fibrillation Qualifiers: Atrial fibrillation type: chronic Qualified Code(s): I48.2 - Chronic atrial fibrillation (8) Chest pain Qualifiers: Chest pain type: other chest pain Qualified Code(s): R07.89 - Other chest pain; R07.8 - Other chest pain (9) Acute pancreatitis Qualifiers: Pancreatitis type: biliary Acute pancreatitis complication: no infection or necrosis Qualified Code(s): K85.10 - Biliary acute pancreatitis without necrosis or infection
[2017-11-29] MEDS ORDERED: Melatonin 3 MG TABLET PO ONE (20:42)
[2017-11-29] MEDS: Doxycycline 100 MG CAPSULE PO SCH (21:09)
[2017-11-29] MEDS: MethylPREDNISolone 40 MG/ML VIAL IVP SCH (21:10)
[2017-11-29] MEDS: *HR* HYDROcodone/Acet 10/325 mg TABLET PO PRN (23:42)
[2017-11-30] MEDS ORDERED: Ipratropium/Albuterol Neb 3 ML IH ONE (00:16)
[2017-11-30] MEDS ORDERED: *HR* LORazepam 2 MG/ML VIAL IVP ONE (00:18)
[2017-11-30] MEDS ORDERED: Furosemide 40 MG/4 ML VIAL IVP ONE ×2 (01:07→11:00)
[2017-11-30 05:12] LABS: Alanine Aminotransferase 6 Units/L (7-52); Albumin 2.8 g/dL (3.5-5.7); Albumin/Globulin Ratio 1.2 (1.1-2.2); Alkaline Phosphatase 52 Units/L (34-104); Aspartate Amino Transferase 11 Units/L (13-39); BUN/Creatinine Ratio 33 (6-26); Blood Urea Nitrogen 21 mg/dL (8-23); Calcium 8.7 mg/dL (8.6-10.3); Carbon Dioxide 25 mEq/L (23-29); Chloride 103 mEq/L (98-107); Globulin 2.4 g/dL (2.4-3.5); Glucose 137 mg/dL (70-105); Lipase 43 Units/L (11-82); Magnesium 1.7 mg/dL (1.6-2.6); Osmolality,Calculated 289 (280-300); Potassium 4.1 mEq/L (3.5-5.1); Sodium 137 mEq/L (136-145); Total Protein 5.2 g/dL (6.4-8.9); eGFR For Non-African Americans > 60 (> 60)
[2017-11-30] MEDS: MethylPREDNISolone 40 MG/ML VIAL IVP SCH ×2 (06:11→16:37)
[2017-11-30] MEDS: Aspirin Enteric Coated 81 MG Tablet PO SCH (07:47)
[2017-11-30] MEDS: Apixaban 5 MG TABLET PO SCH ×2 (07:47→21:20)
[2017-11-30] MEDS: Doxycycline 100 MG CAPSULE PO SCH ×2 (07:47→21:19)
[2017-11-30] MEDS: (Omega-3 Fatty Acids [Fish Oil] 1,200 MG) PO SCH (08:16)
--- NOTE | 2017-11-30 10:48 | Internal Med Progress Note ---
<Juan Luis Ferro - Last Filed: 11/30/17 11:57> Hospitalist Progress Note - Encounter Date of Encounter: 11/30/17 Time of Encounter: 10:00 - Subjective Interval History: Patient seen and examined up and since morning. He states overall he is feeling well and is eager to return home. His abdominal pain has resolved and she is able to tolerate his breakfast without any complaints of nausea, vomiting. He denies any symptoms of fevers, chills, chest pain. He was noted to desaturate overnight and chest x-ray shows moderate pulmonary vascular congestion. He states that he moves he does feel short of breath however does feel some of this at baseline. I did have a discussion with him regarding diuresis and discharging home without oxygen use, and he is agreeable to stay - Exam Vitals: Temp Pulse Resp BP Pulse Ox 97.7 F 60 19 90/50 87 11/30/17 10:34 11/30/17 10:34 11/30/17 10:34 11/30/17 10:34 11/30/17 10:34 Exam: Gen.: Vitals noted. No acute distress. AAOx3 HEENT: PERRL/EOMI, oropharynx clear, Normocephalic, atraumatic, MMM Cardiac: Irregularly irregular rhythm, rate controlled, no murmur, +S1/S2 Pulmonary: Diminished breath sounds on right otherwise CTA bilaterally, no wheezes, rales or rhonchi, equal chest expansion Abdomen: soft, nontender, BS noted, no guarding, no rebound. MSK: ROM intact, no joint swelling noted Extremities: no BLE edema, nontender calf, no cyanosis or clubbing Neuro: A&Ox3, moves all extremities, no focal deficits Psych: Appropriate mood and behavior - Assessment and Plan (1) Acute pancreatitis Current Visit: Yes Status: Acute Assessment and Plan: Likely secondary to gall stones. Patient denies excessive alcohol consumption. 1 /2 to 3ppd smoker x 60 years. CTA 11/27/17 - Acute pancreatitis with multiple small gallstone and pancreatic fat stranding. Liver US 11/28/17 - Cholelithiasis with no evidence of acute cholecystitis Lipase 489 Triglycerides 91 LFTs wnl WBC 15.3 -> 9.4 -> 12.3 Patient reports pain has resolved and he is tolerating a diet without complaints. Stable at this time. (2) Atrial fibrillation with RVR Current Visit: Yes Status: Chronic Assessment and Plan: Hx of AFib, presented on EKG in AFib RVR, likely secondary to acute pancreatitis HR well controlled today CHADs VASC-3 (continue eliquis) HAS BLED score-2 moderate risk of major bleeding Started on cardizem 60 q6 hr yesterday. BP boarderline at 90/60s. Will decrease to 30 mg q6hr Continue home metoprolol Continue cardiac telemetry Will monitor closely Continue Eliquis (3) COPD (chronic obstructive pulmonary disease) Current Visit: No Status: Chronic Assessment and Plan: not in acute exacerbation continue home meds (4) Tobacco abuse Current Visit: Yes Status: Chronic Assessment and Plan: Chronic tobacco abuse discussed smoking cessation. Not interested in quitting at this time (5) AAA (abdominal aortic aneurysm) Current Visit: Yes Status: Chronic Assessment and Plan: History of AAA repair in 2007 without rupture CTA A/P 11/27 - patent aortic graft, no evidence of leak Close monitoring, follow up as outpatient (6) CAD (coronary artery disease) Current Visit: Yes Status: Chronic Assessment and Plan: CAD, Chronic Continue home meds (7) Chest pain Current Visit: Yes Status: Resolved Assessment and Plan: Atypical chest pain on presentation, likely secondary to acute pancreatitis, less likely cardiac Resolved EKG showed AFib RVR without ischemic changes CTA AP - Acute pancreatitis with multiple small gallstones. Patent aorta without signs of leak. Troponin negative Chest pain has now resolved. Will monitor for reoccurrence. (8) (HFpEF) heart failure with preserved ejection fraction Current Visit: Yes Status: Acute Assessment and Plan: - as above for acute respiratory failure (9) DVT prophylaxis Current Visit: Yes Status: Acute Assessment and Plan: Patient is on Eliquis (10) Acute and chronic respiratory failure with hypoxia Current Visit: Yes Status: Acute Assessment and Plan: - Acute on chronic - Home oxygen dependent on 3L - Currently requiring 5 L via NC - Likely secondary to CHF exacerbation - CXR obtained overnight showed possible pulmonary edema with small bilateral pleural effusions which are new from 11/26 - Likely related to fluid resusitation from pancreatitis - Fluids discontinued. Given lasix 40 mg IV once overnight - Most recent echo on 11/28/17 showed EF of 55% with indeterminate diastolic dysfunction Plan - Continue supplemental O2 as needed, attempt to wean - Will give additional IV lasix this afternoon and decreased cardizem for BP control. - Monitor I/Os. DVT Prophylaxis: Eliquis - Time Spent with Patient Total time spent is greater than 50% in coordination of care (as documented) at patient's floor/unit and/or counseling patient: Internal Medicine: Result - Labs CBC & Chem 7: 11/29/17 04:15 11/30/17 04:26 Labs: BMP 11/30/17 04:26 Sodium 137 Potassium 4.1 Chloride 103 Carbon Dioxide 25 BUN 21 Creatinine 0.64 L Glucose 137 H Calcium 8.7 Liver Function 11/30/17 Range/Units 04:26 Total Bilirubin 1.0 (0.3-1.0) mg/dL AST 11 L (13-39) Units/L ALT 6 L (7-52) Units/L Alkaline Phosphatase 52 (34-104) Units/L Albumin 2.8 L (3.5-5.7) g/dL - Impressions Impressions Chest X-Ray 11/30/17 00:20 IMPRESSION: 1. Findings are most concerning for interstitial pulmonary edema, in background of COPD. Small bilateral pleural effusions. These findings are new since 11/26/2017. 2. Bibasilar pulmonary opacities are favored to represent atelectasis, and/or edema, although, aspiration or pneumonia could have similar appearance. Recommend radiographic follow-up to complete resolution. D/ / Justin Huggins MD / Justin Huggins MD Interpreting Provider: Justin Huggins MD - VTE Documentation of Mechanical Device: Intermittent pneumatic compression device Consult Discharge Plan - Plan Referrals: [facility] [Primary Care Provider] - <Brigette Galvan - Last Filed: 11/30/17 15:27> Hospitalist Progress Note - Encounter Date of Encounter: 11/30/17 - Exam Vitals: Temp Pulse Resp BP Pulse Ox 97.7 F 60 19 90/50 87 11/30/17 10:34 11/30/17 10:34 11/30/17 10:34 11/30/17 10:34 11/30/17 10:34 - Assessment and Plan (1) Atrial fibrillation with RVR Current Visit: Yes Status: Chronic (2) COPD (chronic obstructive pulmonary disease) Current Visit: No Status: Chronic (3) Tobacco abuse Current Visit: Yes Status: Chronic (4) AAA (abdominal aortic aneurysm) Current Visit: Yes Status: Chronic (5) CAD (coronary artery disease) Current Visit: Yes Status: Chronic (6) DVT prophylaxis Current Visit: Yes Status: Acute (7) Chest pain Current Visit: Yes Status: Resolved (8) Acute pancreatitis Current Visit: Yes Status: Acute (9) (HFpEF) heart failure with preserved ejection fraction Current Visit: Yes Status: Acute (10) Acute and chronic respiratory failure with hypoxia Current Visit: Yes Status: Acute - Time Spent with Patient Total time spent is greater than 50% in coordination of care (as documented) at patient's floor/unit and/or counseling patient: Internal Medicine: Result - Labs CBC & Chem 7: 11/29/17 04:15 11/30/17 04:26 Labs: BMP 11/30/17 04:26 Sodium 137 Potassium 4.1 Chloride 103 Carbon Dioxide 25 BUN 21 Creatinine 0.64 L Glucose 137 H Calcium 8.7 Liver Function 11/30/17 Range/Units 04:26 Total Bilirubin 1.0 (0.3-1.0) mg/dL AST 11 L (13-39) Units/L ALT 6 L (7-52) Units/L Alkaline Phosphatase 52 (34-104) Units/L Albumin 2.8 L (3.5-5.7) g/dL - Impressions Impressions Chest X-Ray 11/30/17 00:20 IMPRESSION: 1. Findings are most concerning for interstitial pulmonary edema, in background of COPD. Small bilateral pleural effusions. These findings are new since 11/26/2017. 2. Bibasilar pulmonary opacities are favored to represent atelectasis, and/or edema, although, aspiration or pneumonia could have similar appearance. Recommend radiographic follow-up to complete resolution. D/ / Justin Huggins MD / Justin Huggins MD Interpreting Provider: Justin Huggins MD - Attending Attestation I examined this patient and my medical decision-making was reviewed with the Resident Physician Dr. Ferro I agree with the documented findings, disposition and treatment plan as described except to the extent set forth below. Mr. Shay is a 72 year old male with history of atrial fibrillation, COPD, CAD status post 3 stents in 2003, hyperlipidemia, hypertension and AAA repair in 2007 who presented to [place] ED with abdominal pain. He was admitted here with acute pancreeatitis. He happened to acute hypoxic resp failure with COPD exacerbation and CHF exacerbation. His CXR showed pulmonary edema. Pt states his abdominal pain better today. Tolerating PO intake well. Wants to go home. Gen: A, A, O x 3 chest: Diminished BS b/l Heart: S1S2+ Afib No murmurs Abd: Soft, NT a.p 1. Acute pancreatitis improving started on soft diet 2. Afib with RVR Improved switch to PO Cardizem along with home med Metoprolol on Eliquis for anti coag 3. Acute COPD exacerbation 4. Acute hypoxic resp failure 5. Acute on chronic diastolic CHF exacerbation Cont IV Lasix Duoneb and O2 Cont steroids <Juan Luis Ferro - Last Filed: 11/30/17 11:57> (1) Acute pancreatitis Qualifiers: Pancreatitis type: biliary Acute pancreatitis complication: no infection or necrosis Qualified Code(s): K85.10 - Biliary acute pancreatitis without necrosis or infection (3) COPD (chronic obstructive pulmonary disease) Qualifiers: COPD type: unspecified COPD Qualified Code(s): J44.9 - Chronic obstructive pulmonary disease, unspecified (5) AAA (abdominal aortic aneurysm) Qualifiers: Presence of rupture: without rupture Qualified Code(s): I71.4 - Abdominal aortic aneurysm, without rupture (6) CAD (coronary artery disease) Qualifiers: Coronary Disease-Associated Artery/Lesion type: [place] artery [place] vs. transplanted heart: [place] heart Associated angina: without angina Qualified Code(s): I25.10 - Atherosclerotic heart disease of [place] coronary artery without angina pectoris (7) Chest pain Qualifiers: Chest pain type: other chest pain Qualified Code(s): R07.89 - Other chest pain; R07.8 - Other chest pain <Brigette Galvan - Last Filed: 11/30/17 15:27> (2) COPD (chronic obstructive pulmonary disease) Qualifiers: COPD type: unspecified COPD Qualified Code(s): J44.9 - Chronic obstructive pulmonary disease, unspecified (4) AAA (abdominal aortic aneurysm) Qualifiers: Presence of rupture: without rupture Qualified Code(s): I71.4 - Abdominal aortic aneurysm, without rupture (5) CAD (coronary artery disease) Qualifiers: Coronary Disease-Associated Artery/Lesion type: [place] artery [place] vs. transplanted heart: [place] heart Associated angina: without angina Qualified Code(s): I25.10 - Atherosclerotic heart disease of [place] coronary artery without angina pectoris (7) Chest pain Qualifiers: Chest pain type: other chest pain Qualified Code(s): R07.89 - Other chest pain; R07.8 - Other chest pain (8) Acute pancreatitis Qualifiers: Pancreatitis type: biliary Acute pancreatitis complication: no infection or necrosis Qualified Code(s): K85.10 - Biliary acute pancreatitis without necrosis or infection
[2017-11-30] MEDS: *HR* HYDROcodone/Acet 10/325 mg TABLET PO PRN (16:37)
[2017-11-30] MEDS ORDERED: Furosemide 20 MG/2 ML VIAL IVP ONE (18:15)
[2017-11-30] MEDS ORDERED: Melatonin 3 MG TABLET PO SCH (21:00)
[2017-11-30] MEDS ORDERED: Acetaminophen 325 MG TABLET PO ONE (22:06)
[2017-12-01] MEDS: *HR* HYDROcodone/Acet 10/325 mg TABLET PO PRN ×2 (00:26→17:12)
--- NOTE | 2017-12-01 15:09 | Discharge Summary ---
<GaboolegarioMaryam Manning - Last Filed: 12/01/17 15:52> - NOTES TO OUTPATIENT PROVIDER Notes to Outpatient Provider: Unable to wean supplemental O2 due to desaturation at rest. Patient is being discharged on supplemental O2. Recommend outpatient pulmonology follow up. Started Cardizem CD 120 for Afib rate control, follow up with Cardiology. Follow up with PCP within 1 week. Date of Encounter: 12/01/17 Time of Encounter: 09:00 - Discharge Diagnosis (1) Acute pancreatitis Priority: Primary Status: Acute Qualifiers: Pancreatitis type: biliary Acute pancreatitis complication: no infection or necrosis Qualified Code(s): K85.10 - Biliary acute pancreatitis without necrosis or infection (2) Atrial fibrillation with RVR Priority: Secondary Status: Chronic (3) Chest pain Priority: Secondary Status: Resolved Qualifiers: Chest pain type: other chest pain Qualified Code(s): R07.89 - Other chest pain; R07.8 - Other chest pain (4) AAA (abdominal aortic aneurysm) Priority: Secondary Status: Chronic Qualifiers: Presence of rupture: without rupture Qualified Code(s): I71.4 - Abdominal aortic aneurysm, without rupture (5) CAD (coronary artery disease) Priority: Secondary Status: Chronic Qualifiers: Coronary Disease-Associated Artery/Lesion type: [place] artery [place] vs. transplanted heart: [place] heart Associated angina: without angina Qualified Code(s): I25.10 - Atherosclerotic heart disease of [place] coronary artery without angina pectoris (6) Tobacco abuse Priority: Secondary Status: Chronic (7) Chronic low back pain Priority: Secondary Status: Acute Qualifiers: Back pain laterality: unspecified Sciatica presence: unspecified whether sciatica present Qualified Code(s): M54.5 - Low back pain; G89.29 - Other chronic pain Hospital course: Mr. Shay is a 72 year old male with history of atrial fibrillation, COPD, CAD status post 3 stents in 2003, hyperlipidemia, hypertension and AAA repair in 2007, and tobacco abuse, who presented to [place] ED with chest pain. Complained of nausea but denied vomiting. He was afebrile, normotensive, and AFib RVR on admission. Initially there was concern for cardiac ischemia or aortic aneurysm or dissection given patient history, however he had a negative troponin, EKG showed AFib RVR without ischemic changes, pain did not improve with nitro. CTA A/P noted acute pancreatitis with multiple small gallstones with pancreatic fat stranding. Liver US showed cholelithiasis without acute cholecystitis. On admission, patient had a WBC 15.3, Lipase 489, Amylase 227, Triglycerides 91, AST 11, ALT 6, total Bilirubin 0.6. He received 6L lactated ringers. Symptoms had resolved by day 2 and patient was tolerating a regular diet. Afib RVR required a cardizem drip initially and was then transitioned oral cardizem. Patient required 4L NC throughout his admission and did not tolerating weaning. He was qualified for home oxygen and is to follow up with pulmonary as an outpatient. Patient is being discharged on supplemental oxygen and oral cardizem in addition to his regular home medications in stable condition. Discharge discussed with: patient Time spent discussing smoking cessation with patient: 3 to 10 minutes - Time Spent with Patient Total time spent providing and/or coordinating discharge services: Greater than 30 minutes - Discharge Medications Prescriptions: Diltiazem CD (24hr) [Cardizem CD] 120 mg PO DAILY #30 cap.er.24h Home Medications: RX: Cyclobenzaprine HCl 5 mg PO TID 11/18/14 [History] RX: Hydrocodone/Acetaminophen [Forgan 10-325 Tablet] 1 each PO 5XD 11/18/14 [History] RX: Omeprazole [PriLOSEC] 40 mg PO QAM 11/18/14 [History] RX: Simvastatin [Zocor] 80 mg PO HS 11/18/14 [History] RX: Apixaban [Eliquis] 5 mg PO BID 03/22/17 [History] RX: Metoprolol [Lopressor] 75 mg PO BID 03/22/17 [History] RX: Multivit-Min/FA/Lycopen/Lutein [Centrum Silver Tablet] 1 each PO DAILY 03/23/17 [History] RX: [place]-3 Fatty Acids [Fish Oil] 1,200 mg PO BID 03/23/17 [History] RX: Aspirin Enteric Coated [Aspirin EC] 81 mg PO DAILY #30 tab 03/24/17 [Rx] RX: Furosemide [Lasix] 40 mg PO DAILY 11/27/17 [History] RX: Ondansetron HCl [Zofran] 4 mg PO BID PRN 11/28/17 [History] Diltiazem CD (24hr) [Cardizem CD] 120 mg PO DAILY #30 cap.er.24h 12/01/17 [Rx] Allergies/Adverse Reactions: Allergy/AdvReac Type Severity Reaction Status Date / Time gabapentin Allergy See Verified 11/27/17 00:26 Comments Oxycodone Allergy See Verified 11/27/17 00:26 Comments Date of admission: 11/29/17 09:11 Primary care physician: PCP OR - Constitutional Vitals: Temp Pulse Resp BP Pulse Ox 97.7 F 89 16 118/80 93 12/01/17 00:25 12/01/17 00:25 12/01/17 00:25 12/01/17 00:25 12/01/17 14:20 Exam: Gen.: Vitals noted. No acute distress. AAOx3 HEENT: EOMI, Normocephalic, atraumatic Cardiac: Irregularly irregular rhythm, rate controlled, no murmur, +S1/S2 Pulmonary: Diminished breath sounds bilaterally, no wheezes, rales or rhonchi, equal chest expansion Abdomen: soft, nontender, BS noted, no guarding, no rebound. MSK: ROM intact, no joint swelling noted Extremities: no BLE edema, nontender calf, no cyanosis or clubbing Neuro: no focal deficits Psych: Appropriate mood and behavior - Patient Status Disposition: Home, Self-Care Condition: Fair Functional capacity at discharge: independent ambulation Overall status at discharge: patient is progressing back to baseline - Discharge Instructions Instructions: Diltiazem (By mouth), Heart Failure (DC), Atrial Fibrillation (DC), Chest Pain (DC), Pancreatitis (DC), Pancreatitis (GEN), Chronic Obstructive Pulmonary Disease (DC) Follow Up With: Kaylin Ames MD [Partnered Physician] - (refferral made if they have not called you by next call their office to make an appointment) OR,PCP [Primary Care Provider] - 12/06/17 12:30 pm Henrry Biggs DO [Partnered Physician] - (refferal made if they have not call you by next call their office to make an appointment) - Diet and Activity Activity: increase activity as tolerated Diet: regular diet - VTE Documentation of Mechanical Device: Intermittent pneumatic compression device <Brigette Galvan - Last Filed: 12/01/17 18:09> - Discharge Diagnosis (1) Atrial fibrillation with RVR Status: Chronic (2) COPD (chronic obstructive pulmonary disease) Status: Chronic Qualifiers: COPD type: unspecified COPD Qualified Code(s): J44.9 - Chronic obstructive pulmonary disease, unspecified (3) Tobacco abuse Status: Chronic (4) AAA (abdominal aortic aneurysm) Status: Chronic Qualifiers: Presence of rupture: without rupture Qualified Code(s): I71.4 - Abdominal aortic aneurysm, without rupture (5) CAD (coronary artery disease) Status: Chronic Qualifiers: Coronary Disease-Associated Artery/Lesion type: [place] artery [place] vs. transplanted heart: [place] heart Associated angina: without angina Qualified Code(s): I25.10 - Atherosclerotic heart disease of [place] coronary artery without angina pectoris (6) DVT prophylaxis Status: Acute (7) Chest pain Status: Resolved Qualifiers: Chest pain type: other chest pain Qualified Code(s): R07.89 - Other chest pain; R07.8 - Other chest pain (8) Acute pancreatitis Status: Acute Qualifiers: Pancreatitis type: biliary Acute pancreatitis complication: no infection or necrosis Qualified Code(s): K85.10 - Biliary acute pancreatitis without necrosis or infection (9) (HFpEF) heart failure with preserved ejection fraction Status: Acute (10) Acute and chronic respiratory failure with hypoxia Status: Acute Hospital course: Mr. Shay is a 72 year old male - Time Spent with Patient Total time spent providing and/or coordinating discharge services: Date of admission: 11/29/17 09:11 Primary care physician: PCP OR - Constitutional Vitals: Temp Pulse Resp BP Pulse Ox 97.6 F 89 16 133/94 95 12/01/17 16:49 12/01/17 00:25 12/01/17 00:25 12/01/17 15:50 12/01/17 17:06 - Attending Attestation I examined this patient and my medical decision-making was reviewed with the Resident Physician Dr. Sorenson I agree with the documented findings, disposition and treatment plan as described except to the extent set forth below. Mr. Shay is a 72 year old male with history of atrial fibrillation, COPD, CAD status post 3 stents in 2003, hyperlipidemia, hypertension and AAA repair in 2007 who presented to [facility] ED with abdominal pain. He was admitted here with acute pancreeatitis. He happened to acute hypoxic resp failure with COPD exacerbation and CHF exacerbation. His CXR showed pulmonary edema. Pt states his abdominal pain better today. Tolerating PO intake well. Wants to go home. Gen: A, A, O x 3 chest: Diminished BS b/l Heart: S1S2+ Afib No murmurs Abd: Soft, NT a.p 1. Acute pancreatitis improved started on soft diet 2. Afib with RVR Improved switch to PO Cardizem along with home med Metoprolol on Eliquis for anti coag 3. Acute COPD exacerbation 4. Acute hypoxic resp failure 5. Acute on chronic diastolic CHF exacerbation Improving switch to PO lasix Need 4 lit continuous O2 arranged for home O2 Duoneb and steroids
[2017-12-01 16:01] VITALS: BP 133/94
[2017-12-01] MEDS: MethylPREDNISolone 40 MG/ML VIAL IVP SCH ×2 (17:19→17:21)
[2017-12-01] MEDS: Doxycycline 100 MG CAPSULE PO SCH (17:20)
[2017-12-01] MEDS: Aspirin Enteric Coated 81 MG Tablet PO SCH (17:20)
[2017-12-01] MEDS: Apixaban 5 MG TABLET PO SCH (17:20)
[2017-12-01] MEDS ORDERED: MethylPREDNISolone 40 MG/ML VIAL IVP ONE (18:47)
[2017-12-01] MEDS ORDERED: Apixaban 5 MG TABLET PO ONE (18:47)
[2017-12-01] MEDS ORDERED: Furosemide 20 MG/2 ML VIAL IVP ONE (18:47)
[2017-12-01] MEDS ORDERED: Aspirin Enteric Coated 81 MG Tablet PO ONE ×2 (18:47)
[2017-12-01] MEDS ORDERED: *HR* HYDROcodone/Acet 10/325 mg TABLET PO ONE (18:47)
[2017-12-01] MEDS ORDERED: Doxycycline 100 MG CAPSULE PO ONE (18:47)
== END 2017-12-01 18:48 | disposition home or self-care (01) | DRG 438 ==
LOC: 3BNU → SUATTDRO 01:32 → 2NENU 11:57
PROVIDERS: ADMIT Internal Medicine; ATTEND Family Medicine